=== PATIENT | female | born 1965 | race Caucasian/White ===

== ENCOUNTER → 2017-02-19 | Outpatient (CLI) | payer MEDICARE ==
--- NOTE | 2017-02-20 09:58 | MM ---
Reason for exam: screening (asymptomatic). Last mammogram was performed 1 year and 2 months ago. History: Patient is postmenopausal. Family history of breast cancer in 2 aunts at age 50. Physical Findings: A clinical breast exam by your physician is recommended on an annual basis and results should be correlated with mammographic findings. MG 3D Screening Mammo W/Cad Bilateral CC and MLO view(s) were taken. Prior study comparison: December 12, 2015, bilateral MG 3d screening mammo w/cad. May 31, 2014, bilateral MG screening mammo w CAD. There are scattered fibroglandular densities. There is no discrete abnormality. ASSESSMENT: Negative, BI-RAD 1 RECOMMENDATION: Routine screening mammogram of both breasts in 1 year.
== END | disposition home or self-care (01) ==
LOC: RADMAMWWP 14:31
PROVIDERS: ATTEND Family Medicine
DX: Z12.31 Encounter for screening mammogram for malignant neoplasm of breast (principal)
CPT/HCPCS: 77063; G0202

== ENCOUNTER → 2017-09-21 | Outpatient (CLI) | payer MEDICARE ==
[2017-09-21 11:25] LABS: ALT 40 U/L (9-52); AST 47 U/L (14-36); Cholesterol 240 mg/dL (<200); Creatine Kinase 77 U/L (30-135); HDL Cholesterol 45 mg/dL (40-60); LDL Cholesterol,Calculated 145 mg/dL (0-99); Triglycerides 250 mg/dL (<150)
== END | disposition home or self-care (01) ==
LOC: LABWHC1 10:59
PROVIDERS: ATTEND Internal Medicine Cardiovascular Disease
DX: E78.2 Mixed hyperlipidemia (principal)
CPT/HCPCS: 36415; 80061; 82550; 84450; 84460

== ENCOUNTER → 2018-05-22 | Outpatient (CLI) | payer MEDICARE ==
--- NOTE | 2018-05-22 11:55 | XR ---
EXAMINATION TYPE: XR Hip Complete LT DATE OF EXAM: 05/22/2018 COMPARISON: NONE HISTORY: Pain TECHNIQUE: 2 views submitted FINDINGS: There is no evidence of erosive change or acute fracture. IMPRESSION: 1. No evidence of acute fracture or dislocation.
--- NOTE | 2018-05-22 11:58 | XR ---
EXAMINATION TYPE: XR knee complete RT DATE OF EXAM: 05/22/2018 COMPARISON: NONE HISTORY: Pain TECHNIQUE: Four views are submitted. FINDINGS: Severe arthropathy of the medial compartment knee joint with hypertrophic spurring and complete loss of joint space. There is moderate changes involving the patellofemoral joint. There is a suprapatella r bursal fluid collection. There is a thin linear lucency involving the tibial plateau. IMPRESSION: 1. Severe osteoarthritis. Could not exclude a nondisplaced hairline fracture through the medial tibia l plateau recommend CT scan. A Terrell level critical message alert has been initiated for Lionel Toledo MD via the [employer] Critical Results System on 05/22/2018 11:56 AM. This message alert has been sent to Lionel Toledo MD via the preferences provided by the clinician for the receipt of Radiology Critical Findings. [facility] ID [id number].
--- NOTE | 2018-05-22 12:00 | XR ---
EXAM TYPE: LUMBAR SPINE X RAY SERIES COMPARISON: NONE HISTORY: Pain TECHNIQUE: 4 views are submitted. FINDINGS: Alignment is anatomic. The pedicles are intact. The transverse processes are intact. There is a gra de 1 anterolisthesis L4 on L5. There is multilevel mild degenerative disc disease. There is advanced facet arthropathy at levels L3-S1. Foraminal encroachment L5-S1 suspected. Hypertrophic spurring at m ultiple levels and there is mild diffuse osteopenia.. Surgical clips in the right upper quadrant. IMPRESSION: 1. Multilevel degenerative disc disease with advanced facet arthropathy and grade 1 anterolisthesis L 4 on L5. Recommend follow-up MRI. 2. Foraminal encroachment L5-S1 suspected.
--- NOTE | 2018-05-22 12:05 | XR ---
EXAMINATION TYPE: XR cervical spine comp DATE OF EXAM: 05/22/2018 COMPARISON: 05/26/2016 HISTORY: Pain TECHNIQUE: Four views are submitted. FINDINGS: The odontoid is intact. There are no compression deformities. The prevertebral soft tissue structur es are within normal limits. Grade 1 anterolisthesis C4 on C5. Multilevel mild facet arthropathy. Fo raminal encroachment C3-4 and C5-6 suggested soft tissue calcification on the right neck likely relat ed to carotid artery. Loss of the normal cervical lordosis. IMPRESSION: 1. Facet arthropathy with a minimal anterolisthesis of C4 on C5 with loss of the cervical lordosis. T his is nonspecific. Foraminal encroachment suspected. Recommend follow-up MRI.
== END | disposition home or self-care (01) ==
LOC: RADXRMAIN 11:12
PROVIDERS: ATTEND Physical Medicine & Rehabilitation
DX: M43.12 Spondylolisthesis, cervical region (principal); M43.16 Spondylolisthesis, lumbar region; M51.36 Other intervertebral disc degeneration, lumbar region; M46.96 Unspecified inflammatory spondylopathy, lumbar region; M46.92 Unspecified inflammatory spondylopathy, cervical region; M17.11 Unilateral primary osteoarthritis, right knee; M25.552 Pain in left hip
CPT/HCPCS: 72050; 72110; 73502

== ENCOUNTER → 2018-05-23 | Outpatient (CLI) | payer MEDICARE ==
--- NOTE | 2018-05-23 18:55 | CT ---
EXAMINATION TYPE: CT knee RT wo/w con DATE OF EXAM: 05/23/2018 COMPARISON: None HISTORY: unspecified proximal tibial fracture CT DLP: 969.80 mGycm Automated exposure control for dose reduction was used. CONTRAST: Performed with IV Contrast, patient injected with 100 mL of Isovue 300. FINDINGS: Multiple axial sections were obtained from the mid shaft of the femur to the mid shaft of the tibia w ith no contrast. There is severe narrowing of the medial joint space of the right knee with spurring of the medial fem oral and tibial condyles. The knee joint space is obliterated. There is mild narrowing of the lateral joint space. I see no fracture. Patellofemoral joint is intact. There is hypertrophic spurring on th e patella. There is no sign of a joint effusion. There is subchondral cystic change and sclerosis on both sides of the medial joint space. IMPRESSION: MODERATELY SEVERE OSTEOARTHRITIS IN THE MEDIAL JOINT SPACE OF THE RIGHT KNEE. NO FRACTURE SEEN.
--- NOTE | 2018-05-23 18:58 | CT ---
EXAMINATION TYPE: CT hip LT wo con DATE OF EXAM: 05/23/2018 COMPARISON: None HISTORY: pain CT DLP: 874.90 mGycm Automated exposure control for dose reduction was used. FINDINGS: Multiple axial sections were obtained from the mid ileum to the midshaft of the left femur with no co ntrast. I see no fracture nor dislocation. Hip joint space is fairly normal. There is no sign of hip dysplasi a. Acetabulum is intact. Proximal femur is intact. There is no free fluid in the pelvis. There is no evidence of soft tissue mass. Left sacroiliac joint is intact. IMPRESSION: NEGATIVE CT SCAN OF THE LEFT HIP JOINT.
== END ==
LOC: RADCTMAIN 16:23
PROVIDERS: ATTEND Family Medicine
DX: M17.11 Unilateral primary osteoarthritis, right knee (principal)
CPT/HCPCS: 73702; 73700; Q9967

== ENCOUNTER 2018-10-16 16:58 | Observation (INO) | payer MEDICARE ==
[2018-10-16] MEDS ORDERED: ASPIRIN 81 MG PO STA (19:08)
[2018-10-16] MEDS ORDERED: SODIUM CHLORIDE 0.9% 1,000 ML IV STA (19:08)
[2018-10-16 19:24] LABS: Appearance,Urine Clear (Clear); Bilirubin,Urine Negative (Negative); Blood,Urine Negative (Negative); Color,Urine Yellow; Glucose,Urine (UA) Negative (Negative); Ketones,Urine Negative (Negative); Leukocyte Esterase,Urine Negative (Negative); Nitrite,Urine Negative (Negative); PH, Urine 6.5 (5.0-8.0); Protein,Urine Negative (Negative); Specific Gravity,Urine 1.022 (1.001-1.035); Urobilinogen,Urine <2.0 mg/dL (<2.0)
[2018-10-16 19:32] LABS: Basophils % (A) 1 %; Eosinophils # (A) 0.2 k/uL (0-0.7); Eosinophils % (A) 3 %; HCT 33.6 % (34.0-46.0); HGB 11.1 gm/dL (11.4-16.0); Lymphocytes # (A) 2.9 k/uL (1.0-4.8); Lymphocytes % (A) 35 %; MCH 27.8 pg (25.0-35.0); MCV 84.1 fL (80.0-100.0); Mean Platelet Volume 7.1; Monocytes # (A) 0.4 k/uL (0-1.0); Monocytes % (A) 5 %; Neutrophils # (A) 4.6 k/uL (1.3-7.7); Neutrophils % (A) 55 %; Platelet Count 307 k/uL (150-450); WBC 8.3 k/uL (3.8-10.6)
[2018-10-16 19:34] LABS: Albumin 4.4 g/dL (3.5-5.0); Calcium 9.9 mg/dL (8.4-10.2); Magnesium 1.9 mg/dL (1.6-2.3); Potassium 3.5 mmol/L (3.5-5.1); Total Bilirubin 0.4 mg/dL (0.2-1.3); Total Protein 7.8 g/dL (6.3-8.2)
[2018-10-16 19:58] LABS: Partial Thromboplastin Time 24.1 sec (22.0-30.0); Prothrombin Time 10.4 sec (9.0-12.0)
--- NOTE | 2018-10-16 20:31 | XR ---
EXAMINATION TYPE: XR chest 2V DATE OF EXAM: 10/16/2018 COMPARISON: NONE HISTORY: Chest pain TECHNIQUE: Frontal and lateral views of the chest are obtained. FINDINGS: Heart and mediastinum are normal. Lungs are clear. Diaphragm is normal. Bony thorax appear s normal. There are chest leads. IMPRESSION: Normal chest.
[2018-10-16 20:43] LABS: D-Dimer 0.65 mg/L FEU (<0.60)
--- NOTE | 2018-10-16 21:03 | US ---
EXAMINATION TYPE: US venous doppler duplex LE RT DATE OF EXAM: 10/16/2018 8:36 PM COMPARISON: NONE CLINICAL HISTORY: Pain. Edema SIDE PERFORMED: Right TECHNIQUE: The lower extremity deep venous system is examined utilizing real time linear array sonog poly with graded compression, doppler sonography and color-flow sonography. VESSELS IMAGED: External Iliac Vein (EIV) Common Femoral Vein Deep Femoral Vein Greater Saphenous Vein * Femoral Vein Popliteal Vein Small Saphenous Vein * Proximal Calf Veins (* superficial vessels) Right Leg: Negative for DVT No evidence of DVT right leg. IMPRESSION: Negative exam. No evidence of deep venous thrombosis in the right leg.
--- NOTE | 2018-10-16 22:12 | CT ---
EXAMINATION TYPE: CT chest angio for PE DATE OF EXAM: 10/16/2018 COMPARISON: 5 views HISTORY: Chest pain. CT DLP: 741.1 mGycm Automated exposure control for dose reduction was used. CONTRAST: CT Chest for pulmonary embolism performed with with IV Contrast, patient injected with 79ml mL of Iso laura 370. There are 3-D post processed images. FINDINGS: The lungs are clear of consolidation. There is no pleural effusion. There is no evidence of a pulmona ry mass. Heart size is normal. There is no pericardial effusion. There is no mediastinal adenopathy. Thoracic aorta is intact without evidence of aneurysm or dissection. There is normal contrast opacification of the pulmonary arteries. There are no filling defects. There is spurring in the thoracic spine. I see no bony destructive process. IMPRESSION: No evidence of pulmonary embolism. Negative exam.
[2018-10-16] MEDS ORDERED: NITROGLYCERIN SL TABS 0.4 MG TAB SUBLINGUAL PRN (22:43)
--- NOTE | 2018-10-16 22:43 | ED ---
General Adult HPI - General Source: patient, RN notes reviewed, old records reviewed Mode of arrival: wheelchair Limitations: no limitations <Zan Jack - Last Filed: 10/16/18 22:45> <Uzair Campbell - Last Filed: 10/19/18 08:08> - General Chief complaint: Recheck/Abnormal Lab/Rx Stated complaint: sent by [facility]-possible DVT Time Seen by Provider: 10/16/18 18:52 - History of Present Illness Initial comments: 53-year-old female patient past medical history of hypertension presents ED for multiple complaints. Patient reports that she has myalgias throughout her body. Complains of pain in her right lower extremity. Patient also complains approximately 3 months of waxing and waning chest pain in her left axilla. Patient was sent for approximately 2 days she has been having sharp stabbing ch est pains in her left breast region that lasts approximately 30 seconds or less. Patient states that he does have mild shortness of breath and has had this for approximately one month. She denies any abdominal pain, nausea vomiting or diarrhea. Patient states that she is not . Systemic: Pt denies fatigue, myalgia, fever/chills. Pt denies weakness, night sweats, weight loss. Neuro: Pt denies headache, visual disturbances, syncope or pre-syncope. HEENT: Pt denies ocular discharge or irritation, otalgia, rhinorrhea, pharyngitis or notable lymphadenopathy. Cardiopulmonary: Pt denies chest pain, SOB, heart palpitations, dyspnea on exertion. Abdominal/GI: Pt denies abdominal pain, n/v/d. : Pt denies dysuria, burning w/ urination, frequency/urgency. Denies new onset urinary or bowel incontinence. MSK: Pt denies myalgia, loss of strength or function in extremities. Neuro: Pt denies new onset weakness, paresthesias. (Zan Jack) - Related Data Home Medications Medication Instructions Recorded Confirmed Gabapentin [Neurontin] 400 mg PO TID 11/02/13 10/16/18 HYDROcodone/APAP 10-325MG [[place] 1 tab PO QID PRN 11/02/13 10/16/18 10-325] Ibuprofen [Motrin] 800 mg PO TID 11/02/13 10/16/18 Nitroglycerin Sl Tabs [Nitrostat] 0.4 mg PO DIRECTED PRN 11/02/13 10/16/18 Omeprazole [PriLOSEC] 20 mg PO AC-BID 11/02/13 10/16/18 Zolpidem [Ambien] 10 mg PO HS 11/02/13 10/16/18 tiZANidine [Zanaflex] 4 mg PO Q8HR 11/02/13 10/16/18 Ondansetron Odt [Zofran ODT] 4 mg PO Q8HR PRN 05/26/16 10/16/18 Cider Vinegar [Apple Cider Vinegar] 300 mg PO BID 10/16/18 10/16/18 Ranitidine HCl [Zantac] 150 mg PO HS 10/16/18 10/16/18 Previous Rx's Medication Instructions Recorded Furosemide [Lasix] 40 mg PO DAILY #90 tab 10/17/18 Rosuvastatin Calcium [Crestor] 10 mg PO DAILY #90 tab 10/17/18 cloNIDine HCL [Catapres] 0.1 mg PO BID #0 10/17/18 Allergies Allergy/AdvReac Type Severity Reaction Status Date / Time adhesive Allergy Unknown Verified 05/26/16 20:20 latex Allergy Rash/Hives Verified 10/16/18 19:14 Review of Systems ROS Other: All systems not noted in ROS Statement are negative. <Zan Jack - Last Filed: 10/16/18 22:45> ROS Other: All systems not noted in ROS Statement are negative. <Uzair Campbell - Last Filed: 10/19/18 08:08> ROS Statement: Those systems with pertinent positive or pertinent negative responses have been documented in the HPI. Past Medical History Past Medical History: Eye Disorder, Hypertension Additional Past Medical History / Comment(s): DIFFICULTY SWALLOWING, STATES NEEDS LASER EYE SX FOR "NARROWING OF EYE" BEING WORKED UP BY CARDIOLOGY FOR "RACING HEART" HAD STRESS TEST AND ECHO 24HR MONITOR HX OF 65 LB WEIGHT LOSS, HX OF KIDNEY STONES, HX OF "BROKEN NECK" History of Any Multi-Drug Resistant Organisms: None Reported Past Surgical History: Orthopedic Surgery Additional Past Surgical History / Comment(s): LEFT SHOULDER SX 10/2013, BENIGN MASS REMOVED X3 LEFT ARM,RT KNEE ARTHROSCOPY, MULT. PAIN CLINIC PROCEDURES Past Anesthesia/Blood Transfusion Reactions: Postoperative Nausea & Vomiting (PONV) Additional Past Anesthesia/Blood Transfusion Reaction / Comment(s): STATES HARD TIME WAKING UP Past Psychological History: No Psychological Hx Reported Smoking Status: Never smoker Past Alcohol Use History: None Reported Past Drug Use History: None Reported <Zan Jack - Last Filed: 10/16/18 22:45> General Exam Limitations: no limitations <Zan Jack - Last Filed: 10/16/18 22:45> - General Exam Comments Initial Comments: Constitutional: NAD, AOX3, Pt has pleasant affect. HEENT: NC/AT, trachea midline, neck supple, no lymphadenopathy. Posterior pharynx non erythematous, without exudates. External ears appear normal, without discharge. Mucous membranes moist. Eyes PERRLA, EOM intact. There is no scleral icterus. No pallor noted. Cardiopulmonary: RRR, no murmurs, rubs or gallops, no JVD noted. Lungs CTAB in anterior and posterior [place]. No peripheral edema. Abdominal exam: Abdomen soft and non-distended. Abdomen non-tender to palpation in all 4 quadrants. Bowel sounds active in LLQ. No hepatosplenomegaly. No ecchymosis Neuro: CN II-XII grossly intact. No nuchal rigidity. MSK: Mild tenderness to palpation in right lower extremity posterior calf. No tenderness to palpation left lower extremity. Homans sign negative.. No erythema, no ecchymosis. Sensation intact in upper and lower extremities. Full active ROM in upper and lower extremities, 5/5 stregnth. (Zan Jack) Course Vital Signs 10/16/18 10/16/18 10/16/18 17:26 19:30 22:53 Temperature 98.5 F 97.1 F L Pulse Rate 69 60 63 Pulse Rate [ Pulse Oximetery ] Respiratory 18 18 16 Rate Blood Pressure 125/67 133/69 151/80 Blood Pressure [Right Arm] O2 Sat by Pulse 96 98 100 Oximetry 10/16/18 10/17/18 23:23 00:00 Temperature 97.7 F Pulse Rate Pulse Rate [ 57 L Pulse Oximetery ] Respiratory 17 18 Rate Blood Pressure Blood Pressure 148/77 [Right Arm] O2 Sat by Pulse 98 Oximetry Medical Decision Making - Lab Data Result diagrams: 10/16/18 19:15 10/16/18 19:15 <Zan Jack - Last Filed: 10/16/18 22:45> - Lab Data Result diagrams: 10/16/18 19:15 10/16/18 19:15 <Uzair Campbell - Last Filed: 10/19/18 08:08> - Medical Decision Making 53-year-old female patient past medical history of hypertension presents ED for multiple complaints. Patient reports that she has myalgias throughout her body. Complains of pain in her right lower extremity. Patient also complains approximately 3 months of waxing and waning chest pain in her left axilla. Patient was sent for approximately 2 days she has been having sharp stabbing chest pains in her left breast region that lasts approximately 30 seconds or less. Patient states that he does have mild shortness of breath and has had this for approximately one month. She denies any abdominal pain, nausea vomiting or diarrhea. Patient states that she is not . Patient vital signs stable, afebrile. Physical exam displayed: Mild tenderness to palpation in right lower extremity posterior calf. No tenderness to palpation left lower extremity. Homans sign negative. Laboratory investigations were not impressive CBC. Title Searcher is studies revealed mildly elevated d-dimer of 0.65. CMP non-impressive. Troponin negative. BNP within normal limits. UA negative. Ul trasound lower extremity displayed no acute DVT. Chest x-ray displayed no acute process. CT displayed no evidence of pulmonary embolism. Patient admitted for cardiology consult and serial troponins. Case discussed with Dr. Yadav. (Zan Jack) I saw this patient in conjunction with the physician seismic survey assistant. I performed independent history and physical exam. Agree with case management. (Uzair Campbell) - Lab Data Lab Results 10/16/18 10/16/18 10/16/18 Range/Units 19:15 19:15 19:15 WBC 8.3 (3.8-10.6) k/uL RBC 4.00 (3.80-5.40) m/uL Hgb 11.1 L (11.4-16.0) gm/dL Hct 33.6 L (34.0-46.0) % MCV 84.1 (80.0-100.0) fL MCH 27.8 (25.0-35.0) pg MCHC 33.0 (31.0-37.0) g/dL RDW 15.0 (11.5-15.5) % Plt Count 307 (150-450) k/uL Neutrophils % 55 % Lymphocytes % 35 % Monocytes % 5 % Eosinophils % 3 % Basophils % 1 % Neutrophils # 4.6 (1.3-7.7) k/uL Lymphocytes # 2.9 (1.0-4.8) k/uL Monocytes # 0.4 (0-1.0) k/uL Eosinophils # 0.2 (0-0.7) k/uL Basophils # 0.0 (0-0.2) k/uL PT 10.4 (9.0-12.0) sec INR 1.0 (<1.2) APTT 24.1 (22.0-30.0) sec D-Dimer 0.65 H (<0.60) mg/L FEU Sodium 141 (137-145) mmol/L Potassium 3.5 (3.5-5.1) mmol/L Chloride 106 (98-107) mmol/L Carbon Dioxide 27 (22-30) mmol/L Anion Gap 8 mmol/L BUN 17 (7-17) mg/dL Creatinine 0.93 (0.52-1.04) mg/dL Est GFR (CKD-EPI)AfAm 81 (>60 ml/min/1.73 sqM) Est GFR (CKD-EPI)NonAf 70 (>60 ml/min/1.73 sqM) Glucose 95 (74-99) mg/dL Calcium 9.9 (8.4-10.2) mg/dL Magnesium 1.9 (1.6-2.3) mg/dL Total Bilirubin 0.4 (0.2-1.3) mg/dL AST 37 H (14-36) U/L ALT 36 (9-52) U/L Alkaline Phosphatase 97 (38-126) U/L Troponin I (0.000-0.034) ng/mL NT-Pro-B Natriuret Pep pg/mL Total Protein 7.8 (6.3-8.2) g/dL Albumin 4.4 (3.5-5.0) g/dL Triglycerides (<150) mg/dL Cholesterol (<200) mg/dL LDL Cholesterol, Calc (0-99) mg/dL HDL Cholesterol (40-60) mg/dL Urine Color Urine Appearance (Clear) Urine pH (5.0-8.0) Ur Specific [place] (1.001-1.035) Urine Protein (Negative) Urine Glucose (UA) (Negative) Urine Ketones (Negative) Urine Blood (Negative) Urine Nitrite (Negative) Urine Bilirubin (Negative) Urine Urobilinogen (<2.0) mg/dL Ur Leukocyte Esterase (Negative) Urine HCG, Qual (Not Detectd) 10/16/18 10/16/18 10/16/18 Range/Units 19:15 19:15 19:15 WBC (3.8-10.6) k/uL RBC (3.80-5.40) m/uL Hgb (11.4-16.0) gm/dL Hct (34.0-46.0) % MCV (80.0-100.0) fL MCH (25.0-35.0) pg MCHC (31.0-37.0) g/dL RDW (11.5-15.5) % Plt Count (150-450) k/uL Neutrophils % % Lymphocytes % % Monocytes % % Eosinophils % % Basophils % % Neutrophils # (1.3-7.7) k/uL Lymphocytes # (1.0-4.8) k/uL Monocytes # (0-1.0) k/uL Eosinophils # (0-0.7) k/uL Basophils # (0-0.2) k/uL PT (9.0-12.0) sec INR (<1.2) APTT (22.0-30.0) sec D-Dimer (<0.60) mg/L FEU Sodium (137-145) mmol/L Potassium (3.5-5.1) mmol/L Chloride (98-107) mmol/L Carbon Dioxide (22-30) mmol/L Anion Gap mmol/L BUN (7-17) mg/dL Creatinine (0.52-1.04) mg/dL Est GFR (CKD-EPI)AfAm (>60 ml/min/1.73 sqM) Est GFR (CKD-EPI)NonAf (>60 ml/min/1.73 sqM) Glucose (74-99) mg/dL Calcium (8.4-10.2) mg/dL Magnesium (1.6-2.3) mg/dL Total Bilirubin (0.2-1.3) mg/dL AST (14-36) U/L ALT (9-52) U/L Alkaline Phosphatase (38-126) U/L Troponin I <0.012 (0.000-0.034) ng/mL NT-Pro-B Natriuret Pep 93 pg/mL Total Protein (6.3-8.2) g/dL Albumin (3.5-5.0) g/dL Triglycerides (<150) mg/dL Cholesterol (<200) mg/dL LDL Cholesterol, Calc (0-99) mg/dL HDL Cholesterol (40-60) mg/dL Urine Color Urine Appearance (Clear) Urine pH (5.0-8.0) Ur Specific [place] (1.001-1.035) Urine Protein (Negative) Urine Glucose (UA) (Negative) Urine Ketones (Negative) Urine Blood (Negative) Urine Nitrite (Negative) Urine Bilirubin (Negative) Urine Urobilinogen (<2.0) mg/dL Ur Leukocyte Esterase (Negative) Urine HCG, Qual Not Detected (Not Detectd) 10/16/18 10/16/18 Range/Units 19:15 19:15 WBC (3.8-10.6) k/uL RBC (3.80-5.40) m/uL Hgb (11.4-16.0) gm/dL Hct (34.0-46.0) % MCV (80.0-100.0) fL MCH (25.0-35.0) pg MCHC (31.0-37.0) g/dL RDW (11.5-15.5) % Plt Count (150-450) k/uL Neutrophils % % Lymphocytes % % Monocytes % % Eosinophils % % Basophils % % Neutrophils # (1.3-7.7) k/uL Lymphocytes # (1.0-4.8) k/uL Monocytes # (0-1.0) k/uL Eosinophils # (0-0.7) k/uL Basophils # (0-0.2) k/uL PT (9.0-12.0) sec INR (<1.2) APTT (22.0-30.0) sec D-Dimer (<0.60) mg/L FEU Sodium (137-145) mmol/L Potassium (3.5-5.1) mmol/L Chloride (98-107) mmol/L Carbon Dioxide (22-30) mmol/L Anion Gap mmol/L BUN (7-17) mg/dL Creatinine (0.52-1.04) mg/dL Est GFR (CKD-EPI)AfAm (>60 ml/min/1.73 sqM) Est GFR (CKD-EPI)NonAf (>60 ml/min/1.73 sqM) Glucose (74-99) mg/dL Calcium (8.4-10.2) mg/dL Magnesium (1.6-2.3) mg/dL Total Bilirubin (0.2-1.3) mg/dL AST (14-36) U/L ALT (9-52) U/L Alkaline Phosphatase (38-126) U/L Troponin I (0.000-0.034) ng/mL NT-Pro-B Natriuret Pep pg/mL Total Protein (6.3-8.2) g/dL Albumin (3.5-5.0) g/dL Triglycerides 386 H (<150) mg/dL Cholesterol 214 H (<200) mg/dL LDL Cholesterol, Calc 107 H (0-99) mg/dL HDL Cholesterol 30 L (40-60) mg/dL Urine Color Yellow Urine Appearance Clear (Clear) Urine pH 6.5 (5.0-8.0) Ur Specific [place] 1.022 (1.001-1.035) Urine Protein Negative (Negative) Urine Glucose (UA) Negative (Negative) Urine Ketones Negative (Negative) Urine Blood Negative (Negative) Urine Nitrite Negative (Negative) Urine Bilirubin Negative (Negative) Urine Urobilinogen <2.0 (<2.0) mg/dL Ur Leukocyte Esterase Negative (Negative) Urine HCG, Qual (Not Detectd) Disposition Is patient prescribed a controlled substance at d/c from ED?: No <Zan Jack - Last Filed: 10/16/18 22:45> <Uzair Campbell - Last Filed: 10/19/18 08:08> Clinical Impression: Chest pain Disposition: ADMITTED IP TO THIS HOSP Condition: Serious
--- NOTE | 2018-10-16 22:59 | ED ---
Medical Decision Making - Lab Data Result diagrams: 10/16/18 19:15 10/16/18 19:15 - EKG Data -: EKG Interpreted by Me (and dr rutledge) <Zan Jack - Last Filed: 10/16/18 22:58> - Lab Data Result diagrams: 10/16/18 19:15 10/16/18 19:15 <Uzair Campbell - Last Filed: 10/19/18 08:07> - Lab Data Lab Results 10/16/18 10/16/18 10/16/18 Range/Units 19:15 19:15 19:15 WBC 8.3 (3.8-10.6) k/uL RBC 4.00 (3.80-5.40) m/uL Hgb 11.1 L (11.4-16.0) gm/dL Hct 33.6 L (34.0-46.0) % MCV 84.1 (80.0-100.0) fL MCH 27.8 (25.0-35.0) pg MCHC 33.0 (31.0-37.0) g/dL RDW 15.0 (11.5-15.5) % Plt Count 307 (150-450) k/uL Neutrophils % 55 % Lymphocytes % 35 % Monocytes % 5 % Eosinophils % 3 % Basophils % 1 % Neutrophils # 4.6 (1.3-7.7) k/uL Lymphocytes # 2.9 (1.0-4.8) k/uL Monocytes # 0.4 (0-1.0) k/uL Eosinophils # 0.2 (0-0.7) k/uL Basophils # 0.0 (0-0.2) k/uL PT 10.4 (9.0-12.0) sec INR 1.0 (<1.2) APTT 24.1 (22.0-30.0) sec D-Dimer 0.65 H (<0.60) mg/L FEU Sodium 141 (137-145) mmol/L Potassium 3.5 (3.5-5.1) mmol/L Chloride 106 (98-107) mmol/L Carbon Dioxide 27 (22-30) mmol/L Anion Gap 8 mmol/L BUN 17 (7-17) mg/dL Creatinine 0.93 (0.52-1.04) mg/dL Est GFR (CKD-EPI)AfAm 81 (>60 ml/min/1.73 sqM) Est GFR (CKD-EPI)NonAf 70 (>60 ml/min/1.73 sqM) Glucose 95 (74-99) mg/dL Calcium 9.9 (8.4-10.2) mg/dL Magnesium 1.9 (1.6-2.3) mg/dL Total Bilirubin 0.4 (0.2-1.3) mg/dL AST 37 H (14-36) U/L ALT 36 (9-52) U/L Alkaline Phosphatase 97 (38-126) U/L Troponin I (0.000-0.034) ng/mL NT-Pro-B Natriuret Pep pg/mL Total Protein 7.8 (6.3-8.2) g/dL Albumin 4.4 (3.5-5.0) g/dL Triglycerides (<150) mg/dL Cholesterol (<200) mg/dL LDL Cholesterol, Calc (0-99) mg/dL HDL Cholesterol (40-60) mg/dL Urine Color Urine Appearance (Clear) Urine pH (5.0-8.0) Ur Specific [place] (1.001-1.035) Urine Protein (Negative) Urine Glucose (UA) (Negative) Urine Ketones (Negative) Urine Blood (Negative) Urine Nitrite (Negative) Urine Bilirubin (Negative) Urine Urobilinogen (<2.0) mg/dL Ur Leukocyte Esterase (Negative) Urine HCG, Qual (Not Detectd) 10/16/18 10/16/18 10/16/18 Range/Units 19:15 19:15 19:15 WBC (3.8-10.6) k/uL RBC (3.80-5.40) m/uL Hgb (11.4-16.0) gm/dL Hct (34.0-46.0) % MCV (80.0-100.0) fL MCH (25.0-35.0) pg MCHC (31.0-37.0) g/dL RDW (11.5-15.5) % Plt Count (150-450) k/uL Neutrophils % % Lymphocytes % % Monocytes % % Eosinophils % % Basophils % % Neutrophils # (1.3-7.7) k/uL Lymphocytes # (1.0-4.8) k/uL Monocytes # (0-1.0) k/uL Eosinophils # (0-0.7) k/uL Basophils # (0-0.2) k/uL PT (9.0-12.0) sec INR (<1.2) APTT (22.0-30.0) sec D-Dimer (<0.60) mg/L FEU Sodium (137-145) mmol/L Potassium (3.5-5.1) mmol/L Chloride (98-107) mmol/L Carbon Dioxide (22-30) mmol/L Anion Gap mmol/L BUN (7-17) mg/dL Creatinine (0.52-1.04) mg/dL Est GFR (CKD-EPI)AfAm (>60 ml/min/1.73 sqM) Est GFR (CKD-EPI)NonAf (>60 ml/min/1.73 sqM) Glucose (74-99) mg/dL Calcium (8.4-10.2) mg/dL Magnesium (1.6-2.3) mg/dL Total Bilirubin (0.2-1.3) mg/dL AST (14-36) U/L ALT (9-52) U/L Alkaline Phosphatase (38-126) U/L Troponin I <0.012 (0.000-0.034) ng/mL NT-Pro-B Natriuret Pep 93 pg/mL Total Protein (6.3-8.2) g/dL Albumin (3.5-5.0) g/dL Triglycerides (<150) mg/dL Cholesterol (<200) mg/dL LDL Cholesterol, Calc (0-99) mg/dL HDL Cholesterol (40-60) mg/dL Urine Color Urine Appearance (Clear) Urine pH (5.0-8.0) Ur Specific [place] (1.001-1.035) Urine Protein (Negative) Urine Glucose (UA) (Negative) Urine Ketones (Negative) Urine Blood (Negative) Urine Nitrite (Negative) Urine Bilirubin (Negative) Urine Urobilinogen (<2.0) mg/dL Ur Leukocyte Esterase (Negative) Urine HCG, Qual Not Detected (Not Detectd) 10/16/18 10/16/18 Range/Units 19:15 19:15 WBC (3.8-10.6) k/uL RBC (3.80-5.40) m/uL Hgb (11.4-16.0) gm/dL Hct (34.0-46.0) % MCV (80.0-100.0) fL MCH (25.0-35.0) pg MCHC (31.0-37.0) g/dL RDW (11.5-15.5) % Plt Count (150-450) k/uL Neutrophils % % Lymphocytes % % Monocytes % % Eosinophils % % Basophils % % Neutrophils # (1.3-7.7) k/uL Lymphocytes # (1.0-4.8) k/uL Monocytes # (0-1.0) k/uL Eosinophils # (0-0.7) k/uL Basophils # (0-0.2) k/uL PT (9.0-12.0) sec INR (<1.2) APTT (22.0-30.0) sec D-Dimer (<0.60) mg/L FEU Sodium (137-145) mmol/L Potassium (3.5-5.1) mmol/L Chloride (98-107) mmol/L Carbon Dioxide (22-30) mmol/L Anion Gap mmol/L BUN (7-17) mg/dL Creatinine (0.52-1.04) mg/dL Est GFR (CKD-EPI)AfAm (>60 ml/min/1.73 sqM) Est GFR (CKD-EPI)NonAf (>60 ml/min/1.73 sqM) Glucose (74-99) mg/dL Calcium (8.4-10.2) mg/dL Magnesium (1.6-2.3) mg/dL Total Bilirubin (0.2-1.3) mg/dL AST (14-36) U/L ALT (9-52) U/L Alkaline Phosphatase (38-126) U/L Troponin I (0.000-0.034) ng/mL NT-Pro-B Natriuret Pep pg/mL Total Protein (6.3-8.2) g/dL Albumin (3.5-5.0) g/dL Triglycerides 386 H (<150) mg/dL Cholesterol 214 H (<200) mg/dL LDL Cholesterol, Calc 107 H (0-99) mg/dL HDL Cholesterol 30 L (40-60) mg/dL Urine Color Yellow Urine Appearance Clear (Clear) Urine pH 6.5 (5.0-8.0) Ur Specific [place] 1.022 (1.001-1.035) Urine Protein Negative (Negative) Urine Glucose (UA) Negative (Negative) Urine Ketones Negative (Negative) Urine Blood Negative (Negative) Urine Nitrite Negative (Negative) Urine Bilirubin Negative (Negative) Urine Urobilinogen <2.0 (<2.0) mg/dL Ur Leukocyte Esterase Negative (Negative) Urine HCG, Qual (Not Detectd) - EKG Data EKG Comments: Ventricular rate 66, TX interval 144, QRS 84, QT/QTc 42/4.1. Normal sinus rhythm with sinus arrhythmia. No concern for acute ischemia. (Zan Jack) Disposition Is patient prescribed a controlled substance at d/c from ED?: No <Zan Jack - Last Filed: 10/16/18 22:58> <Uzair Campbell - Last Filed: 10/19/18 08:07> Clinical Impression: Chest pain Disposition: ADMITTED IP TO THIS HOSP Condition: Serious
[2018-10-17 04:00] LABS: Cholesterol 214 mg/dL (<200); HDL Cholesterol 30 mg/dL (40-60); LDL Cholesterol,Calculated 107 mg/dL (0-99); Triglycerides 386 mg/dL (<150)
[2018-10-17 05:18] VITALS: RESP 18
[2018-10-17] MEDS ORDERED: ASPIRIN 325 MG TAB PO SCH (09:00)
[2018-10-17] MEDS ORDERED: HYDROcodone/APAP 10-325MG 1 EACH TAB PO PRN (10:35)
[2018-10-17] MEDS ORDERED: ZOLPIDEM 10 MG TAB PO PRN (10:35)
[2018-10-17] MEDS ORDERED: ONDANSETRON ODT 4 MG TAB PO PRN (10:35)
[2018-10-17] MEDS ORDERED: NITROGLYCERIN SL TABS 0.4 MG TAB SUBLINGUAL PRN (10:35)
[2018-10-17] MEDS ORDERED: PANTOPRAZOLE 40 MG TABLET PO SCH (10:45)
[2018-10-17] MEDS ORDERED: GABAPENTIN 400 MG CAP PO SCH ×2 (10:58→16:00)
[2018-10-17] MEDS ORDERED: FUROSEMIDE 40 MG TAB PO SCH (11:00)
[2018-10-17] MEDS ORDERED: cloNIDine HCL 0.1 MG TAB PO SCH (11:00)
[2018-10-17 11:46] VITALS: BP 128/67; PULSE 71; TEMP 98
--- NOTE | 2018-10-17 12:07 | P.CRDCN ---
History of Present Illness History of present illness: This is a pleasant 53-year-old female past medical history significant for hypertension and dyslipidemia. She follows in the office with Dr. Soliz. We've been asked to see her in consultation secondary to chest pain. She states over the previous few days she has noticed an increase in lower extremity edema associated with mild shortness of breath and a tightness across her chest. She woke up Saturday night with a tight pain in the left precordial region that radiated to the left shoulder. She also feels which she describes as a "flip- flopping" in her chest. She states this all palpitations sensation has been going on since she's been in the hospital. Telemetry tracings are unremarkable. Her chest discomfort has subsided. She is seen and examined laying completely flat in bed in no acute distress. Her chest pain has subsided. She does continue to feel discomfort in the left shoulder that is reproducible when she moves her arm or raises her arm. She has had previous shoulder reconstructive surgery. EKG reveals sinus mechanism with no acute ST or T wave abnormalities noted 2. Chest x-ray is negative for an acute cardiopulmonary process. CTA negative for pulmonary embolism. Her extremity Doppler negative for DVT. Laboratory data reviewed, cardiac enzymes negative 3, LDL 107, HDL 30, triglycerides 386, NT proBNP 93, magnesium 1.9, creatinine 0.93, potassium 3.5, sodium 141, d-dimer 0.65, WBC 8.3, hemoglobin 11.1, platelets 307. Current cardiac medications include hydrochlorothiazide 25 mg daily and clonidine 0.1 mg 3 times a day. Most recent echocardiogram obtained in the office preserved LV systolic function. Most recent stress test performed in the office in 2017 was negative for stress- induced cardiac ischemia. At the time of my exam: CONSTITUTIONAL: Denies fever. Denies chills. EYES: Denies blurred vision. Denies vision changes. Denies eye pain. EARS, NOSE, MOUTH & THROAT: Denies headache. Denies sore throat. Denies ear pain. CARDIOVASCULAR: Denies chest pain. Complains of shortness of breath. Denies orthopnea. Denies PND. Denies palpitations. RESPIRATORY: Denies cough. GASTROINTESTINAL: Denies abdominal pain. Denies diarrhea. Denies constipation. Denies nausea. Denies vomiting. MUSCULOSKELETAL: Denies myalgias. INTEGUMENTARY: Denies pruitis. Denies rash. NEUROLOGIC: Denies numbness. Denies tingling. Denies weakness. PSYCHIATRIC: Denies anxiety. Denies depression. ENDOCRINE: Denies fatigue. Denies weight change. Denies polydipsia. Denies polyurina. GENITOURINARY: Denies burning, hematuria or urgency with micturation. HEMATOLOGIC: Denies history of anemia. Denies bleeding. Blood pressure 128/67 heart rate 71 afebrile maintaining oxygen saturation on room air GENERAL: This is a 53-year-old female in no apparent distress at the time of my examination. HEENT: Head is atraumatic, normocephalic. Pupils are equal, round. Sclerae anicteric. Conjunctivae are clear. Mucous membranes of the mouth are moist. Neck is supple. There is no jugular venous distention. No carotid bruit is heard. LUNGS: Clear to auscultation no wheezes, rales or rhonchi. No chest wall tenderness is noted on palpation or with deep breathing. HEART: Regular rate and rhythm without murmurs, rubs or gallops. S1 and S2 heard. ABDOMEN: Soft, nontender. Bowel sounds are heard. No organomegaly noted. EXTREMITIES: 1+ b/l lower extremity pitting edmea. No calf tenderness noted. VASCULAR: Radial and dorsalis pedis pulses palpated, no evidence of clubbing. NEUROLOGIC: Patient is awake, alert and oriented x3. ASSESSMENT Chest pain and shortness of breath. Not suggestive of angina. An acute coronary event has been ruled out. Hypertension Dyslipidemia Obesity, BMI 36 PLAN An acute coronary event has been ruled out. Obtain 2D echocardiogram and doppler study to assess cardiac structure and function. Perform stress echocardiogram to assess for stress induced ischemia. Discontinue hydrochlorothiazide and initiate on lasix 20 mg daily. Discussed with her trying crestor 10 mg every other day and she is agreeable to try this regimen. Clinically she is not in heart failure with normal systolic and diastolic function noted on echocardiogram and normal chest xray and BNP. Lower extremity edema not suggestive of heart failure. Follow up with Dr. Soliz upon discharge. Thank you kindly for this consultation. Nurse Practitioner note has been reviewed, I agree with a documented findings and plan of care. Patient was seen and examined. Past Medical History Past Medical History: Eye Disorder, Hypertension Additional Past Medical History / Comment(s): DIFFICULTY SWALLOWING, STATES NEEDS LASER EYE SX FOR "NARROWING OF EYE" BEING WORKED UP BY CARDIOLOGY FOR "RACING HEART" HAD STRESS TEST AND ECHO 24HR MONITOR HX OF 65 LB WEIGHT LOSS, HX OF KIDNEY STONES, HX OF "BROKEN NECK" History of Any Multi-Drug Resistant Organisms: None Reported Past Surgical History: Orthopedic Surgery Additional Past Surgical History / Comment(s): LEFT SHOULDER SX 10/2013, BENIGN MASS REMOVED X3 LEFT ARM,RT KNEE ARTHROSCOPY, MULT. PAIN CLINIC PROCEDURES Past Anesthesia/Blood Transfusion Reactions: Postoperative Nausea & Vomiting (PONV) Additional Past Anesthesia/Blood Transfusion Reaction / Comment(s): STATES HARD TIME WAKING UP Past Psychological History: No Psychological Hx Reported Smoking Status: Never smoker Past Alcohol Use History: None Reported Past Drug Use History: None Reported Medications and Allergies Home Medications Medication Instructions Recorded Confirmed Type Gabapentin [Neurontin] 400 mg PO TID 11/02/13 10/16/18 History HYDROcodone/APAP 10-325MG [[place] 1 tab PO QID PRN 11/02/13 10/16/18 History 10-325] Ibuprofen [Motrin] 800 mg PO TID 11/02/13 10/16/18 History Nitroglycerin Sl Tabs [Nitrostat] 0.4 mg PO DIRECTED PRN 11/02/13 10/16/18 History Omeprazole [PriLOSEC] 20 mg PO AC-BID 11/02/13 10/16/18 History Zolpidem [Ambien] 10 mg PO HS 11/02/13 10/16/18 History cloNIDine HCL [Catapres] 0.1 mg PO TID 11/02/13 10/16/18 History tiZANidine [Zanaflex] 4 mg PO Q8HR 11/02/13 10/16/18 History Ondansetron Odt [Zofran Odt] 4 mg PO Q8HR PRN 05/26/16 10/16/18 History Cider Vinegar [Apple Cider Vinegar] 300 mg PO BID 10/16/18 10/16/18 History Ranitidine HCl [Zantac] 150 mg PO HS 10/16/18 10/16/18 History Furosemide [Lasix] 40 mg PO DAILY #90 tab 10/17/18 Rx Hydrochlorothiazide 25 mg PO DAILY 10/17/18 10/17/18 History Rosuvastatin Calcium [Crestor] 10 mg PO DAILY #90 tab 10/17/18 Rx Allergies Allergy/AdvReac Type Severity Reaction Status Date / Time adhesive Allergy Unknown Verified 05/26/16 20:20 latex Allergy Rash/Hives Verified 10/16/18 19:14 Physical Exam Vitals: Vital Signs Temp Pulse Pulse Pulse Resp BP BP 10/17/18 07:45 10/17/18 07:25 97.8 F 58 L 18 109/72 10/17/18 04:17 97.8 F 52 L 18 103/64 10/17/18 03:29 66 17 10/17/18 00:00 97.7 F 57 L 18 148/77 10/16/18 23:23 17 10/16/18 22:53 97.1 F L 63 16 151/80 10/16/18 19:30 60 18 133/69 10/16/18 17:26 98.5 F 69 18 125/67 Pulse Ox 10/17/18 07:45 98 10/17/18 07:25 98 10/17/18 04:17 97 10/17/18 03:29 10/17/18 00:00 98 10/16/18 23:23 10/16/18 22:53 100 10/16/18 19:30 98 10/16/18 17:26 96 Intake and Output 10/16/18 10/17/18 10/17/18 22:59 06:59 14:59 Other: Voiding Method Toilet # Voids 1 Weight 102.058 kg Results 10/16/18 19:15 10/16/18 19:15 Cardiac Enzymes 10/16/18 10/16/18 10/17/18 Range/Units 19:15 19:15 01:01 AST 37 H (14-36) U/L Troponin I <0.012 <0.012 (0.000-0.034) ng/mL Coagulation 10/16/18 Range/Units 19:15 PT 10.4 (9.0-12.0) sec APTT 24.1 (22.0-30.0) sec Lipids 10/16/18 Range/Units 19:15 Triglycerides 386 H (<150) mg/dL Cholesterol 214 H (<200) mg/dL HDL Cholesterol 30 L (40-60) mg/dL CBC 10/16/18 Range/Units 19:15 WBC 8.3 (3.8-10.6) k/uL RBC 4.00 (3.80-5.40) m/uL Hgb 11.1 L (11.4-16.0) gm/dL Hct 33.6 L (34.0-46.0) % Plt Count 307 (150-450) k/uL Comprehensive Metabolic Panel 10/16/18 Range/Units 19:15 Sodium 141 (137-145) mmol/L Potassium 3.5 (3.5-5.1) mmol/L Chloride 106 (98-107) mmol/L Carbon Dioxide 27 (22-30) mmol/L BUN 17 (7-17) mg/dL Creatinine 0.93 (0.52-1.04) mg/dL Glucose 95 (74-99) mg/dL Calcium 9.9 (8.4-10.2) mg/dL AST 37 H (14-36) U/L ALT 36 (9-52) U/L Alkaline Phosphatase 97 (38-126) U/L Total Protein 7.8 (6.3-8.2) g/dL Albumin 4.4 (3.5-5.0) g/dL Current Medications Generic Name Dose Route Start Last Admin Trade Name Freq PRN Reason Stop Dose Admin Aspirin 325 mg 10/17/18 09:00 Aspirin PO DAILY FOX Nitroglycerin 0.4 mg 10/16/18 22:43 Nitrostat SUBLINGUAL Q5M PRN Chest Pain Intake and Output 10/16/18 10/17/18 10/17/18 22:59 06:59 14:59 Other: Voiding Method Toilet # Voids 1 Weight 102.058 kg 10/16/18 19:15 10/16/18 19:15
--- NOTE | 2018-10-17 12:51 | ECHOS ---
STRESS ECHOCARDIOGRAM DATE OF SERVICE: 10/17/2018 INDICATIONS: Chest pain. MEDICATIONS: BASELINE HEART RATE: 82 BASELINE BLOOD PRESSURE: 130/80 MAXIMUM HEART RATE: 140 MAXIMUM BLOOD PRESSURE: 189/75 85% MPHR: 140 100% MPHR: 165 METS: 7.1 MAXIMUM STAGE REACHED: II TOTAL EXERCISE TIME: 6 minutes CLINICAL INFORMATION: This stress echocardiographic study was performed to evaluate the patient's chest pain. The patient was exercised for a total period of 6 minutes. Peak heart rate of 140 was achieved. Maximum blood pressure 189/75 mmHg was noted. Resting EKG shows normal sinus rhythm with normal AL interval and QRS duration and normal ST-T waves. During exercise, about [address]-segment depression was noted without any symptoms of angina. The baseline echocardiographic images revealed normal left ventricular chamber size with normal left ventricular systolic function. In the immediate postexercise period, normal increase in the wall thickness and contractility was noted. However, only parasternal short and long-axis views were captured, but no wall motion abnormality was noted in the immediate postexercise period. FINAL IMPRESSION: This stress echocardiographic study is negative for stress-induced ischemia. EKG portion of the stress test shows ST-T changes which could be secondary to hypertension and patient on diuretic. There was no associated symptoms of angina. No dysrhythmias are noted. MMODL / IJN: [id number] /
--- NOTE | 2018-10-17 14:13 | P.PN ---
Progress Note - Text Stable for discharge from a cardiac perspective. Follow up with Dr. Soliz upon discharge.
--- NOTE | 2018-10-17 15:42 | ECHOF ---
Referral Reason:chest pain MEASUREMENTS -------- HEIGHT: 167.6 cm WEIGHT: 102.1 kg BP: 103/64 RVIDd: 3.2 cm (< 3.3) IVSd: 1.3 cm (0.6 - 1.1) LVIDd: 4.0 cm (3.9 - 5.3) LVPWd: 1.3 cm (0.6 - 1.1) IVSs: 1.7 cm LVIDs: 2.4 cm LVPWs: 1.6 cm LA Diam: 3.6 cm (2.7 - 3.8) LAESV Index (A-L): 26.93 ml/m Ao Diam: 3.0 cm (2.0 - 3.7) AV Cusp: 1.8 cm (1.5 - 2.6) MV EXCURSION: 14.924 mm (> 18.000) MV EF SLOPE: 96 mm/s (70 - 150) EPSS: 0.2 cm MV E Jose: 0.92 m/s MV DecT: 228 ms MV A Jose: 1.04 m/s MV E/A Ratio: 0.88 RAP: 5.00 mmHg RVSP: 25.88 mmHg FINDINGS -------- Sinus rhythm. This was a technically adequate study. The left ventricular size is normal. There is mild concentric left ventricular hypertrophy. Overa ll left ventricular systolic function is normal with, an EF between 60 - 65 %. The right ventricle is normal in size. Normal LA size by volume 22+/-6 ml/m2. The right atrium is normal in size. The aortic valve is trileaflet and appears structurally normal. Trace to mild aortic regurgitation. The mitral valve is normal. Mild tricuspid regurgitation present. Right ventricular systolic pressure is normal at < 35 mmHg. Trace/mild (physiologic) pulmonic regurgitation. The aortic root size is normal. Normal inferior vena cava with normal inspiratory collapse consistent with estimated right atrial pre ssure of 5 mmHg. The inferior vena cava is mildly dilated. There is no pericardial effusion. CONCLUSIONS -------- 1. Sinus rhythm. 2. This was a technically adequate study. 3. The left ventricular size is normal. 4. There is mild concentric left ventricular hypertrophy. 5. Overall left ventricular systolic function is normal with, an EF between 60 - 65 %. 6. The right ventricle is normal in size. 7. Normal LA size by volume 22+/-6 ml/m2. 8. The right atrium is normal in size. 9. The aortic valve is trileaflet and appears structurally normal. 10. Trace to mild aortic regurgitation. 11. The mitral valve is normal. 12. Mild tricuspid regurgitation present. 13. Right ventricular systolic pressure is normal at < 35 mmHg. 14. Trace/mild (physiologic) pulmonic regurgitation. 15. The aortic root size is normal. 16. Normal inferior vena cava with normal inspiratory collapse consistent with estimated right atrial pressure of 5 mmHg. 17. The inferior vena cava is mildly dilated. 18. There is no pericardial effusion. [employer] APPRAISER: Margarita Hess RDCS
--- NOTE | 2018-10-17 15:52 | P.HPIM ---
History of Present Illness Patient is a esyxvxth-uglb-fac female with history of hypertension and hyperlipidemia came in with the complaints of chest pressure-like sensation was ruled out acute coronary syndromes after which patient underwent stress test which is negative patient will also complaining of bilateral lower extremity edema. No evidence of can start failure and liver failure. Patient probably has chronic venous insufficiency patient was switched from hydrochlorothiazide to Lasix patient was given Lasix after which I did not appreciate any pedal edema. Etiology of chest pain is not clear patient had a CT angios the chest which did not show PE or pneumonia. Patient is clinically doing well will be discharged today. Her chest pain resolved. Patient blood pressure is not that high probably we can taper and the completely this can you clonidine , clonidine is being switched to 0.1 mg twice a day Review of Systems REVIEW OF SYSTEMS: CONSTITUTIONAL: No fever, no malaise, no fatigue. HEENT: No recent visual problems or hearing problems. Denied any sore throat. CARDIOVASCULAR: No orthopnea, PND, no palpitations, no syncope. PULMONARY: No shortness of breath, no cough, no hemoptysis. GASTROINTESTINAL: No diarrhea, no nausea, no vomiting, no abdominal pain. NEUROLOGICAL: No headaches, no weakness, no numbness. HEMATOLOGICAL: Denies any bleeding or petechiae. GENITOURINARY: Denies any burning micturition, frequency, or urgency. MUSCULOSKELETAL/RHEUMATOLOGICAL: Denies any joint pain, swelling, or any muscle pain. ENDOCRINE: Denies any polyuria or polydipsia. The rest of the 14-point review of systems is negative. Past Medical History Past Medical History: Eye Disorder, Hypertension Additional Past Medical History / Comment(s): DIFFICULTY SWALLOWING, STATES NEEDS LASER EYE SX FOR "NARROWING OF EYE" BEING WORKED UP BY CARDIOLOGY FOR "RACING HEART" HAD STRESS TEST AND ECHO 24HR MONITOR HX OF 65 LB WEIGHT LOSS, HX OF KIDNEY STONES, HX OF "BROKEN NECK" History of Any Multi-Drug Resistant Organisms: None Reported Past Surgical History: Orthopedic Surgery Additional Past Surgical History / Comment(s): LEFT SHOULDER SX 10/2013, BENIGN MASS REMOVED X3 LEFT ARM,RT KNEE ARTHROSCOPY, MULT. PAIN CLINIC PROCEDURES Past Anesthesia/Blood Transfusion Reactions: Postoperative Nausea & Vomiting (PONV) Additional Past Anesthesia/Blood Transfusion Reaction / Comment(s): STATES HARD TIME WAKING UP Past Psychological History: No Psychological Hx Reported Smoking Status: Never smoker Past Alcohol Use History: None Reported Past Drug Use History: None Reported Medications and Allergies Home Medications Medication Instructions Recorded Confirmed Type Gabapentin [Neurontin] 400 mg PO TID 11/02/13 10/16/18 History HYDROcodone/APAP 10-325MG [[place] 1 tab PO QID PRN 11/02/13 10/16/18 History 10-325] Ibuprofen [Motrin] 800 mg PO TID 11/02/13 10/16/18 History Nitroglycerin Sl Tabs [Nitrostat] 0.4 mg PO DIRECTED PRN 11/02/13 10/16/18 H istory Omeprazole [PriLOSEC] 20 mg PO AC-BID 11/02/13 10/16/18 History Zolpidem [Ambien] 10 mg PO HS 11/02/13 10/16/18 History tiZANidine [Zanaflex] 4 mg PO Q8HR 11/02/13 10/16/18 History Ondansetron Odt [Zofran ODT] 4 mg PO Q8HR PRN 05/26/16 10/16/18 History Cider Vinegar [Apple Cider Vinegar] 300 mg PO BID 10/16/18 10/16/18 History Ranitidine HCl [Zantac] 150 mg PO HS 10/16/18 10/16/18 History Furosemide [Lasix] 40 mg PO DAILY #90 tab 10/17/18 Rx Rosuvastatin Calcium [Crestor] 10 mg PO DAILY #90 tab 10/17/18 Rx cloNIDine HCL [Catapres] 0.1 mg PO BID #0 10/17/18 10/16/18 Rx Allergies Allergy/AdvReac Type Severity Reaction Status Date / Time adhesive Allergy Unknown Verified 05/26/16 20:20 latex Allergy Rash/Hives Verified 10/16/18 19:14 Physical Exam Vitals: Vital Signs Temp Pulse Pulse Pulse Resp BP BP 10/17/18 12:00 66 71 18 10/17/18 11:45 98.0 F 71 18 128/67 10/17/18 08:00 66 58 L 18 10/17/18 07:45 10/17/18 07:25 97.8 F 58 L 18 10/17/18 04:17 97.8 F 52 L 18 05/17/19 03:29 66 17 10/17/18 00:00 97.7 F 57 L 18 10/16/18 23:23 17 10/16/18 22:53 97.1 F L 63 16 151/80 10/16/18 19:30 60 18 133/69 10/16/18 17:26 98.5 F 69 18 125/67 BP Pulse Ox 10/17/18 12:00 10/17/18 11:45 97 10/17/18 08:00 10/17/18 07:45 98 10/17/18 07:25 109/72 98 10/17/18 04:17 103/64 97 10/17/18 03:29 10/17/18 00:00 148/77 98 10/16/18 23:23 10/16/18 22:53 100 10/16/18 19:30 98 10/16/18 17:26 96 Intake and Output 10/17/18 10/17/18 10/17/18 06:59 14:59 22:59 Other: Voiding Method Toilet Toilet # Voids 1 PHYSICAL EXAMINATION: GENERAL: The patient is alert and oriented x3, not in any acute distress. Well developed, well nourished. HEENT: Pupils are round and equally reacting to light. EOMI. No scleral icterus. No conjunctival pallor. Normocephalic, atraumatic. No pharyngeal erythema. No thyromegaly. CARDIOVASCULAR: S1 and S2 present. No murmurs, rubs, or gallops. PULMONARY: Chest is clear to auscultation, no wheezing or crackles. ABDOMEN: Soft, nontender, nondistended, normoactive bowel sounds. No palpable organomegaly. MUSCULOSKELETAL: No joint swelling or deformity. EXTREMITIES: No cyanosis, clubbing, or pedal edema. NEUROLOGICAL: Gross neurological examination did not reveal any focal deficits. SKIN: No rashes. Results CBC & Chem 7: 10/16/18 19:15 10/16/18 19:15 Labs: Abnormal Lab Results - Last 24 Hours (Table) 10/16/18 10/16/18 10/16/18 Range/Units 19:15 19:15 19:15 Hgb 11.1 L (11.4-16.0) gm/dL Hct 33.6 L (34.0-46.0) % D-Dimer 0.65 H (<0.60) mg/L FEU AST 37 H (14-36) U/L Triglycerides (<150) mg/dL Cholesterol (<200) mg/dL LDL Cholesterol, Calc (0-99) mg/dL HDL Cholesterol (40-60) mg/dL 10/16/18 Range/Units 19:15 Hgb (11.4-16.0) gm/dL Hct (34.0-46.0) % D-Dimer (<0.60) mg/L FEU AST (14-36) U/L Triglycerides 386 H (<150) mg/dL Cholesterol 214 H (<200) mg/dL LDL Cholesterol, Calc 107 H (0-99) mg/dL HDL Cholesterol 30 L (40-60) mg/dL Thrombosis Risk Factor Assmnt - Choose All That Apply Each Factor Represents 1 point: Age 41-60 years, Obesity (BMI >25) Other Risk Factors: No Thrombosis Risk Factor Assessment Total Risk Factor Score: 2 Thrombosis Risk Factor Assessment Level: Low Risk Assessment and Plan Plan: Chest pain: Etiology is not clear to rule out a pulmonary embolism ruled out acute coronary syndrome/unstable angina. Stress test was negative. -Bilateral pedal edema probably due to venous insufficiency -Hypertension management as mentioned above -Hyperlipidemia -Obesity: Counseling was provided Patient will be discharged today.
--- NOTE | 2018-10-17 15:52 | P.DS ---
Providers Date of admission: 10/16/18 22:34 Attending physician: Olayinka Munoz Consults: 10/16/18 22:43 Consult Physician Urgent Consulting Provider: Desiree Cisse Consult Reason/Comments: chest pain Do you want consulting provider notified?: Yes Primary care physician: Olayinka Munoz [facility] Course: Reason for to my history of present illness for further details Patient Condition at Discharge: Serious Plan - Discharge Summary Discharge Rx Participant: Yes New Discharge Prescriptions: New Furosemide [Lasix] 40 mg PO DAILY #90 tab Rosuvastatin Calcium [Crestor] 10 mg PO DAILY #90 tab Continue tiZANidine [Zanaflex] 4 mg PO Q8HR Omeprazole [PriLOSEC] 20 mg PO AC-BID Gabapentin [Neurontin] 400 mg PO TID Zolpidem [Ambien] 10 mg PO HS Nitroglycerin Sl Tabs [Nitrostat] 0.4 mg PO DIRECTED PRN PRN Reason: Angina Ibuprofen [Motrin] 800 mg PO TID HYDROcodone/APAP 10-325MG [[place] 10-325] 1 tab PO QID PRN PRN Reason: Pain Ondansetron Odt [Zofran ODT] 4 mg PO Q8HR PRN PRN Reason: Nausea Ranitidine HCl [Zantac] 150 mg PO HS Cider Vinegar [Apple Cider Vinegar] 300 mg PO BID Changed cloNIDine HCL [Catapres] 0.1 mg PO BID #0 Discontinued Hydrochlorothiazide [Hydrodiuril] 25 mg PO DAILY Hydrochlorothiazide 25 mg PO DAILY Discharge Medication List Gabapentin [Neurontin] 400 mg PO TID 11/02/13 [History] HYDROcodone/APAP 10-325MG [[place] 10-325] 1 tab PO QID PRN 11/02/13 [History] Ibuprofen [Motrin] 800 mg PO TID 11/02/13 [History] Nitroglycerin Sl Tabs [Nitrostat] 0.4 mg PO DIRECTED PRN 11/02/13 [History] Omeprazole [PriLOSEC] 20 mg PO AC-BID 11/02/13 [History] Zolpidem [Ambien] 10 mg PO HS 11/02/13 [History] tiZANidine [Zanaflex] 4 mg PO Q8HR 11/02/13 [History] Ondansetron Odt [Zofran ODT] 4 mg PO Q8HR PRN 05/26/16 [History] Cider Vinegar [Apple Cider Vinegar] 300 mg PO BID 10/16/18 [History] Ranitidine HCl [Zantac] 150 mg PO HS 10/16/18 [History] Furosemide [Lasix] 40 mg PO DAILY #90 tab 10/17/18 [Rx] Rosuvastatin Calcium [Crestor] 10 mg PO DAILY #90 tab 10/17/18 [Rx] cloNIDine HCL [Catapres] 0.1 mg PO BID #0 10/17/18 [Rx] Follow up Appointment(s)/Referral(s): Olayinka Munoz MD [Primary Care Provider] - 3 Days Tereso Soliz MD [STAFF PHYSICIAN] - 2 Weeks (pt requested to make her own appointment. ) Discharge Disposition: HOME SELF-CARE
[2018-10-17] MEDS ORDERED: tiZANidine 4 MG TAB PO SCH (16:00)
[2018-10-18] MEDS ORDERED: ASPIRIN 81 MG PO SCH (09:00)
== END 2018-10-17 16:15 | disposition home or self-care (01) ==
LOC: EC 16:58 → 1SOBS 22:34
PROVIDERS: ADMIT Family Medicine; ATTEND Family Medicine
DX: R07.89 Other chest pain (principal); R06.02 Shortness of breath; R60.0 Localized edema; R79.89 Other specified abnormal findings of blood chemistry; M79.10 Myalgia, unspecified site; M79.604 Pain in right leg; I10 Essential (primary) hypertension; H57.9 Unspecified disorder of eye and adnexa; R13.10 Dysphagia, unspecified; R00.0 Tachycardia, unspecified; E78.5 Hyperlipidemia, unspecified; R00.2 Palpitations; E66.9 Obesity, unspecified; Z68.36 Body mass index [BMI] 36.0-36.9, adult; Z79.1 Long term (current) use of non-steroidal anti-inflammatories (NSAID); Z79.899 Other long term (current) drug therapy; Z91.040 Latex allergy status; Z91.048 Other nonmedicinal substance allergy status; Z87.442 Personal history of urinary calculi; Z87.81 Personal history of (healed) traumatic fracture
CPT/HCPCS: 96360; 96361; 99285; 36415; 94760; 93005; 93306; 93351; 85379; 83880; 80061; 80053; 83735; 84484 ×2; 85025; 85610; 85730; 81003; 81025; 71046; 93971; 71275; G0378 ×2; Q9967

== ENCOUNTER → 2018-10-24 | Outpatient (CLI) | payer MEDICARE ==
--- NOTE | 2018-10-28 12:18 | MM ---
Reason for exam: screening (asymptomatic). Last mammogram was performed 1 year and 8 months ago. History: Patient is postmenopausal. Family history of breast cancer in 2 maternal aunts at age 50. Physical Findings: A clinical breast exam by your physician is recommended on an annual basis and results should be correlated with mammographic findings. MG 3D Screening Mammo W/Cad Bilateral CC and MLO view(s) were taken. Prior study comparison: February 19, 2017, bilateral MG 3d screening mammo w/cad. December 12, 2015, bilateral MG 3d screening mammo w/cad. There are scattered fibroglandular densities. No suspicious abnormality. No significant changes when compared with prior studies. ASSESSMENT: Negative, BI-RAD 1 RECOMMENDATION: Routine screening mammogram of both breasts in 1 year.
== END | disposition home or self-care (01) ==
LOC: RADMAMWWP 11:39
PROVIDERS: ATTEND Family Medicine
DX: Z12.31 Encounter for screening mammogram for malignant neoplasm of breast (principal)
CPT/HCPCS: 77063; 77067

== ENCOUNTER 2019-02-05 20:42 | Emergency (ER) | payer MEDICARE ==
[2019-02-05 21:43] VITALS: RESP 18
[2019-02-05] MEDS ORDERED: ONDANSETRON 4 MG/2 ML VIAL IVP STA (22:31)
[2019-02-05 22:59] LABS: Basophils # (A) 0.1 k/uL (0-0.2); Basophils % (A) 1 %; Eosinophils # (A) 0.2 k/uL (0-0.7); Eosinophils % (A) 2 %; HCT 37.1 % (34.0-46.0); HGB 12.8 gm/dL (11.4-16.0); Lymphocytes # (A) 3.5 k/uL (1.0-4.8); Lymphocytes % (A) 30 %; MCHC 34.5 g/dL (31.0-37.0); MCV 84.2 fL (80.0-100.0); Monocytes # (A) 0.7 k/uL (0-1.0); Monocytes % (A) 6 %; Neutrophils # (A) 6.9 k/uL (1.3-7.7); Neutrophils % (A) 60 %; Platelet Count 325 k/uL (150-450); RBC 4.41 m/uL (3.80-5.40); RDW 15.1 % (11.5-15.5); WBC 11.6 k/uL (3.8-10.6)
[2019-02-05 23:08] LABS: Albumin 4.5 g/dL (3.5-5.0); Calcium 9.9 mg/dL (8.4-10.2); Potassium 3.2 mmol/L (3.5-5.1); Total Bilirubin 0.2 mg/dL (0.2-1.3); Total Protein 8.3 g/dL (6.3-8.2)
--- NOTE | 2019-02-05 23:17 | CT ---
EXAM: CT Head Without Intravenous Contrast CLINICAL HISTORY: ITS.REASON CT Reason: Pain TECHNIQUE: Axial computed tomography images of the head/brain without intravenous contrast. CTDI is 45.2 mGy and DLP is 999.6 mGy-cm. This CT exam was performed using one or more of the following dose reduction techniques: automated exposure control, adjustment of the mA and/or kV according to patient size, and/or use of iterative reconstruction technique. COMPARISON: 05/26/2016. FINDINGS: Brain: No abnormal extra-axial collection. No hemorrhage. Midline shift: There is no midline shift or mass-effect. Ventricles: The ventricular system is age appropriate. Bones/joints: Bony skull is unremarkable. No acute fracture. Soft tissues: Unremarkable. Sinuses: Unremarkable as visualized. No acute sinusitis. Mastoid air cells: Visualized sinuses and mastoid air cells are unremarkable. IMPRESSION: No acute findings. EXAM: CT Cervical Spine Without Intravenous Contrast CLINICAL HISTORY: ITS.REASON CT Reason: Pain TECHNIQUE: Axial computed tomography images of the cervical spine without intravenous contrast. CTDI is 19.2 mGy and DLP is 458.2 mGy-cm. This CT exam was performed using one or more of the following dose reduction techniques: automated exposure control, adjustment of the mA and/or kV according to patient size, and/or use of iterative reconstruction technique. COMPARISON: None. FINDINGS: Vertebrae: There is straightening and reversal of the curvature of the cervical spine, possibly on the basis of muscle spasm. Normal relationship of C1 and C2. No acute fracture. Discs/spinal canal/neural foramina: No acute findings. No spinal canal stenosis. Soft tissues: Prevertebral soft tissues are unremarkable. Paraspinal soft tissues are unremarkable. Lung apices: Lung apices are unremarkable. Other findings: Spinous processes are unremarkable. IMPRESSION: Normal relationship of C1 and C2. Normal alignment. No evidence of acute injury.
[2019-02-05] MEDS ORDERED: POTASSIUM CHLORIDE ER 20 MEQ TAB.ER PO STA (23:46)
--- NOTE | 2019-02-06 00:05 | ED ---
General Adult HPI - General Chief complaint: Recheck/Abnormal Lab/Rx Stated complaint: carbon dioxide poisoning Time Seen by Provider: 02/05/19 22:08 Source: patient, RN notes reviewed, old records reviewed Mode of arrival: wheelchair Limitations: no limitations - History of Present Illness Initial comments: 53-year-old female patient with no pertinent past symptoms CU chief complaint of possible carbon monoxide exposure. Patient reports that she has had difficulties with her still, has smelled the smell of gas for approximately 4 days. Patient reports that she has been opening her windows and ventilating her house. Patient states that when the [employer] came to evaluate issue yesterday they told her that her carbon monoxide level was elevated. Patient reports that she has had a headache towards the crown of her head for approximately 2 days. Patient also reports nausea. Patient presents ED for evaluation of possible exposure. Denies any chest pain or shortness of breath. No other complaints at this time. Systemic: Pt denies fatigue, fever/chills, rash. Pt denies weakness, night sweats, weight loss. Neuro: Pt denies visual disturbances, syncope or pre-syncope. HEENT: Pt denies ocular discharge or irritation, otalgia, rhinorrhea, pharyngitis or notable lymphadenopathy. Cardiopulmonary: Pt denies chest pain, SOB, heart palpitations, dyspnea on exertion. Abdominal/GI: Pt denies abdominal pain, n/v/d. : Pt denies dysuria, burning w/ urination, frequency/urgency. Denies new onset urinary or bowel incontinence. MSK: Pt denies myalgia, loss of strength or function in extremities. Neuro: Pt denies new onset weakness, paresthesias. - Related Data Home Medications Medication Instructions Recorded Confirmed Gabapentin [Neurontin] 400 mg PO TID 11/02/13 02/05/19 HYDROcodone/APAP 10-325MG [[place] 1 tab PO QID PRN 11/02/13 02/05/19 10-325] Nitroglycerin Sl Tabs [Nitrostat] 0.4 mg PO Q5M PRN 11/02/13 02/05/19 Omeprazole [PriLOSEC] 20 mg PO AC-BID 11/02/13 02/05/19 Zolpidem [Ambien] 10 mg PO HS 11/02/13 02/05/19 tiZANidine [Zanaflex] 4 mg PO Q8HR PRN 11/02/13 02/05/19 Ondansetron Odt [Zofran ODT] 4 mg PO Q8HR PRN 05/26/16 02/05/19 Cider Vinegar [Apple Cider Vinegar] 300 mg PO BID 10/16/18 02/05/19 Ranitidine HCl [Zantac] 150 mg PO HS 10/16/18 02/05/19 cloNIDine HCL [Catapres] 0.1 mg PO TID 02/05/19 02/05/19 Previous Rx's Medication Instructions Recorded Furosemide [Lasix] 40 mg PO DAILY #90 tab 10/17/18 Allergies Allergy/AdvReac Type Severity Reaction Status Date / Time adhesive Allergy Unknown Verified 02/05/19 22:27 latex Allergy Rash/Hives Verified 02/05/19 22:27 Review of Systems ROS Statement: Those systems with pertinent positive or pertinent negative responses have been documented in the HPI. ROS Other: All systems not noted in ROS Statement are negative. Past Medical History Past Medical History: Eye Disorder, Hypertension Additional Past Medical History / Comment(s): DIFFICULTY SWALLOWING, STATES NEEDS LASER EYE SX FOR "NARROWING OF EYE" BEING WORKED UP BY CARDIOLOGY FOR "RACING HEART" HAD STRESS TEST AND ECHO 24HR MONITOR HX OF 65 LB WEIGHT LOSS, HX OF KIDNEY STONES, HX OF "BROKEN NECK" History of Any Multi-Drug Resistant Organisms: None Reported Past Surgical History: Orthopedic Surgery Additional Past Surgical History / Comment(s): LEFT SHOULDER SX 10/2013, BENIGN MASS REMOVED X3 LEFT ARM,RT KNEE ARTHROSCOPY, MULT. PAIN CLINIC PROCEDURES, neck surgery Past Anesthesia/Blood Transfusion Reactions: Postoperative Nausea & Vomiting (PONV) Additional Past Anesthesia/Blood Transfusion Reaction / Comment(s): STATES HARD TIME WAKING UP Past Psychological History: No Psychological Hx Reported Smoking Status: Never smoker Past Alcohol Use History: None Reported Past Drug Use History: None Reported General Exam - General Exam Comments Initial Comments: Constitutional: NAD, AOX3, Pt has pleasant affect. HEENT: NC/AT, trachea midline, neck supple, no lymphadenopathy. Posterior pharynx non erythematous, without exudates. External ears appear normal, without discharge. Mucous membranes moist. Eyes PERRLA, EOM intact. There is no scleral icterus. No pallor noted. Cardiopulmonary: RRR, no murmurs, rubs or gallops, no JVD noted. Lungs CTAB in anterior and posterior [place]. No peripheral edema. Abdominal exam: Abdomen soft and non-distended. Abdomen non-tender to palpation in all 4 quadrants. Bowel sounds active in LLQ. No hepatosplenomegaly. No ecchymosis Neuro: CN II-XII intact. No nuchal rigidity. No raccon eyes, no nguyen sign, no hemotympanum. No cervical spinal tenderness. MSK: No posterior calf tenderness bilaterally, homans sign negative bilaterally. Posterior tibialis and radial pulse +2 bilaterally. Sensation intact in upper and lower extremities. Full active ROM in upper and lower extremities, 5/5 stregnth. Limitations: no limitations Course Vital Signs 02/05/19 21:37 Temperature 97.9 F Pulse Rate 89 Respiratory 18 Rate Blood Pressure 151/85 O2 Sat by Pulse 99 Oximetry Medical Decision Making - Medical Decision Making 53-year-old female patient with no pertinent past symptoms CU chief complaint of possible carbon monoxide exposure. Patient reports that she has had difficulties with her still, has smelled the smell of gas for approximately 4 days. Patient reports that she has been opening her windows and ventilating her house. Patient states that when the gas company came to evaluate issue yesterday they told her that her carbon monoxide level was elevated. Patient reports that she has had a headache towards the crown of her head for approximately 2 days. Patient also reports nausea. Patient presents ED for evaluation of possible exposure. Denies any chest pain or shortness of breath. No other complaints at this time. Patient will signs stable, afebrile. Physical exam did not acute pathology. Neurologic exam within normal limits. Laboratory investigations revealed mild leukocytosis 11.6. CMP revealed mild hypokalemia 3.2, supplemented in ED. Carbon monoxide quadrant 1.9. Troponin negative. EKG not concerning for acute ischemia. Patient was placed on nonrebreather while workup was obtained. Patient headache resolved with nonrebreather. This is suggestive of possible cluster type headache. Patient states that she has had a headache disorder. Patient is currently asymptomatic. Patient discharged. Patient states that carbon monoxide issue. House was resolved. Return precautions discussed. Case discussed with Dr. Harvey. - Lab Data Result diagrams: 02/05/19 22:40 02/05/19 22:40 Lab Results 02/05/19 02/05/19 02/05/19 Range/Units 22:40 22:40 22:40 WBC 11.6 H (3.8-10.6) k/uL RBC 4.41 (3.80-5.40) m/uL Hgb 12.8 (11.4-16.0) gm/dL Hct 37.1 (34.0-46.0) % MCV 84.2 (80.0-100.0) fL MCH 29.0 (25.0-35.0) pg MCHC 34.5 (31.0-37.0) g/dL RDW 15.1 (11.5-15.5) % Plt Count 325 (150-450) k/uL Neutrophils % 60 % Lymphocytes % 30 % Monocytes % 6 % Eosinophils % 2 % Basophils % 1 % Neutrophils # 6.9 (1.3-7.7) k/uL Lymphocytes # 3.5 (1.0-4.8) k/uL Monocytes # 0.7 (0-1.0) k/uL Eosinophils # 0.2 (0-0.7) k/uL Basophils # 0.1 (0-0.2) k/uL Carbon Monoxide, Quant 1.9 (<10.0) % Sodium 142 (137-145) mmol/L Potassium 3.2 L (3.5-5.1) mmol/L Chloride 103 (98-107) mmol/L Carbon Dioxide 26 (22-30) mmol/L Anion Gap 13 mmol/L BUN 18 H (7-17) mg/dL Creatinine 1.01 (0.52-1.04) mg/dL Est GFR (CKD-EPI)AfAm 73 (>60 ml/min/1.73 sqM) Est GFR (CKD-EPI)NonAf 63 (>60 ml/min/1.73 sqM) Glucose 145 H (74-99) mg/dL Plasma Lactic Acid Michael (0.7-2.0) mmol/L Calcium 9.9 (8.4-10.2) mg/dL Total Bilirubin 0.2 (0.2-1.3) mg/dL AST 35 (14-36) U/L ALT 31 (9-52) U/L Alkaline Phosphatase 120 (38-126) U/L Creatine Kinase 120 (30-135) U/L Troponin I (0.000-0.034) ng/mL Total Protein 8.3 H (6.3-8.2) g/dL Albumin 4.5 (3.5-5.0) g/dL 02/05/19 02/05/19 Range/Units 22:40 22:40 WBC (3.8-10.6) k/uL RBC (3.80-5.40) m/uL Hgb (11.4-16.0) gm/dL Hct (34.0-46.0) % MCV (80.0-100.0) fL MCH (25.0-35.0) pg MCHC (31.0-37.0) g/dL RDW (11.5-15.5) % Plt Count (150-450) k/uL Neutrophils % % Lymphocytes % % Monocytes % % Eosinophils % % Basophils % % Neutrophils # (1.3-7.7) k/uL Lymphocytes # (1.0-4.8) k/uL Monocytes # (0-1.0) k/uL Eosinophils # (0-0.7) k/uL Basophils # (0-0.2) k/uL Carbon Monoxide, Quant (<10.0) % Sodium (137-145) mmol/L Potassium (3.5-5.1) mmol/L Chloride (98-107) mmol/L Carbon Dioxide (22-30) mmol/L Anion Gap mmol/L BUN (7-17) mg/dL Creatinine (0.52-1.04) mg/dL Est GFR (CKD-EPI)AfAm (>60 ml/min/1.73 sqM) Est GFR (CKD-EPI)NonAf (>60 ml/min/1.73 sqM) Glucose (74-99) mg/dL Plasma Lactic Acid Michael 1.8 (0.7-2.0) mmol/L Calcium (8.4-10.2) mg/dL Total Bilirubin (0.2-1.3) mg/dL AST (14-36) U/L ALT (9-52) U/L Alkaline Phosphatase (38-126) U/L Creatine Kinase (30-135) U/L Troponin I <0.012 (0.000-0.034) ng/mL Total Protein (6.3-8.2) g/dL Albumin (3.5-5.0) g/dL - EKG Data -: EKG Interpreted by Me (and Dr. Harvey ) EKG Comments: Ventricular rate 71, MN interval 128, QRS 82, QT/QTc 416/452. Normal sinus rhythm, normal EKG, no concern for acute ischemia. Disposition Clinical Impression: Carbon monoxide exposure, Headache Disposition: HOME SELF-CARE Condition: Stable Instructions (If sedation given, give patient instructions): Carbon Monoxide Poisoning (ED), Cluster Headache (ED), Acute Headache (ED) Additional Instructions: Patient to adhere to previously discussed treatment plan and will take medication(s) as directed. Patient to follow up with PCP in 1-2 days. Patient to return to ED if symptoms do not improve. Follow up with primary care provider tomorrow, return to ER if condition worsens. Is patient prescribed a controlled substance at d/c from ED?: No Referrals: Olayinka Munoz MD [Primary Care Provider] - 1-2 days
[2019-02-06 00:20] VITALS: BP 163/84; PULSE 70; TEMP 98.3
== END 2019-02-06 00:18 | disposition home or self-care (01) ==
LOC: EC 20:42
DX: T75.89XA Other specified effects of external causes, initial encounter (principal); R51 Headache; I10 Essential (primary) hypertension; Z91.040 Latex allergy status; Z91.048 Other nonmedicinal substance allergy status; Z79.899 Other long term (current) drug therapy; Y92.009 Unspecified place in unspecified non-institutional (private) residence as the place of occurrence of the external cause
CPT/HCPCS: 36415; 93005; 80053; 82375; 82550; 83605; 84484; 85025; 72125; 70450; 99285; 96374; J2405

== ENCOUNTER → 2020-10-19 | Outpatient (CLI) | payer MEDICARE ==
--- NOTE | 2020-10-20 12:38 | BD ---
EXAMINATION TYPE: Axial Bone Density DATE OF EXAM: 10/19/2020 COMPARISON: 12/12/2015 CLINICAL HISTORY: Postmenopausal female Height: 62.5 IN Weight: 206 LBS FRAX RISK QUESTIONS: History of Fracture in Adulthood: LT ELBOW AGE 50; Secondary Osteoporosis: 3. Menopause before 45: AGE 40 RISK FACTORS HISTORY OF: Active: YES Diet low in dairy products/other sources of calcium: YES Postmenopausal woman: AGE 40 Lost more than 2 inches in height since high school: YES 3" MEDICATIONS: Additional Medications: CALCIUM, VIT D, NEUROTIN,MOTRIN, PRILOSEC, NORCO, BLOOD PRESSURE, WATER PILL, AMBIEN, MUSCLE RELAXER, ALLERGY PILL, EXAM MEASUREMENTS: Bone mineral densitometry was performed using the Comunitae System. Bone mineral density as measured about the Lumbar spine is: ----- L1-L4(G/cm2): 1.143 T Score Values are as follows: ----- L2: -0.2 ----- L3: -0.3 ----- L4: -0.6 ----- L1-L4: -0.3 Bone mineral density has: Decreased -7.8% since study of: 12/12/2015 Bone mineral density about the R hip (g/cm2): 0.859 Bone mineral density about the L hip (g/cm2): 0.842 T Score values are as follows: -----R Neck: -1.3 -----L Neck: -1.4 -----R Total: -0.5 -----L Total: -0.2 Bone mineral density has: Decreased -8.3% since study of: 12/12/2015 IMPRESSION: Osteopenia (T Score between -2.5 and -1) is now present. There is slightly increased risk of fracture and the patient may be considered for treatment. Re-Screen 2-5 years. NOTE: T-SCORE=SD OF THE YOUNG ADULT MEAN.
--- NOTE | 2020-10-24 09:31 | MM ---
Reason for exam: screening (asymptomatic). Last mammogram was performed 2 years ago. History: Patient is postmenopausal. Family history of breast cancer in 2 maternal aunts at age 50. Physical Findings: A clinical breast exam by your physician is recommended on an annual basis and results should be correlated with mammographic findings. MG 3D Screening Mammo W/Cad Bilateral CC and MLO view(s) were taken. Prior study comparison: October 24, 2018, bilateral MG 3d screening mammo w/cad. February 19, 2017, bilateral MG 3d screening mammo w/cad. There are scattered fibroglandular densities. ASSESSMENT: Benign, BI-RAD 2 RECOMMENDATION: Routine screening mammogram of both breasts in 1 year.
== END | disposition home or self-care (01) ==
LOC: RADMAMWWP 09:53
PROVIDERS: ATTEND Family Medicine
DX: Z12.31 Encounter for screening mammogram for malignant neoplasm of breast (principal); M85.89 Other specified disorders of bone density and structure, multiple sites; Z78.0 Asymptomatic menopausal state; Z80.3 Family history of malignant neoplasm of breast
CPT/HCPCS: 77063; 77067; 77080

== ENCOUNTER 2020-11-08 19:17 | Emergency (ER) | payer MEDICARE ==
[2020-11-08 19:25] VITALS: TEMP 98
[2020-11-08] MEDS ORDERED: ONDANSETRON ODT 4 MG TAB PO STA (19:52)
[2020-11-08] MEDS ORDERED: DIPH,PERTUS(ACELL)TETVAC-LF 0.5 ML VIAL IM ONE (19:54)
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
--- NOTE | 2020-11-08 20:52 | XR ---
EXAMINATION TYPE: XR elbow complete LT DATE OF EXAM: 11/08/2020 COMPARISON: NONE HISTORY: Pain TECHNIQUE: 3 views FINDINGS: I see no fracture nor dislocation. Elbow joint spaces are normal. There is no sign of joint effusion. IMPRESSION: Negative left elbow exam.
--- NOTE | 2020-11-08 20:53 | XR ---
EXAMINATION TYPE: XR knee complete LT DATE OF EXAM: 11/08/2020 COMPARISON: NONE HISTORY: Pain TECHNIQUE: 3 views FINDINGS: I see no fracture nor dislocation. Joint spaces are fairly normal. There is no sign of join t effusion. IMPRESSION: Negative left knee exam.
--- NOTE | 2020-11-08 20:55 | XR ---
EXAMINATION TYPE: XR tibia fibula RT DATE OF EXAM: 11/08/2020 COMPARISON: NONE HISTORY: Pain TECHNIQUE: 3 views FINDINGS: There is moderate narrowing of the medial joint space of the knee. Tibia and fibula appear intact. I see no fracture nor dislocation. There is plantar calcaneal spurring. IMPRESSION: No fracture seen. Moderate osteoarthritis in the medial joint space of the right knee.
--- NOTE | 2020-11-08 20:56 | XR ---
EXAMINATION TYPE: XR ankle complete RT DATE OF EXAM: 11/08/2020 COMPARISON: NONE HISTORY: Pain TECHNIQUE: 3 views FINDINGS: Ankle mortise is anatomic. I see no fracture nor dislocation. There is plantar calcaneal sp urring. IMPRESSION: No acute abnormality of the right ankle. No fracture.
--- NOTE | 2020-11-08 20:57 | XR ---
EXAMINATION TYPE: XR shoulder complete LT DATE OF EXAM: 11/08/2020 COMPARISON: NONE HISTORY: Pain TECHNIQUE: 3 views FINDINGS: I see no fracture nor dislocation. Joint spaces are normal. There is intact glenohumeral hubert int. IMPRESSION: Negative left shoulder exam.
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
[2020-11-08] MEDS ORDERED: BACITRACIN OINT 1 EACH PACKET TOPICAL ONE (21:16)
[2020-11-08 21:46] VITALS: BP 141/83; PULSE 77; RESP 16
== END 2020-11-08 22:18 | disposition home or self-care (01) ==
LOC: EC 19:17
DX: S16.1XXA Strain of muscle, fascia and tendon at neck level, initial encounter (principal); S80.11XA Contusion of right lower leg, initial encounter; S50.312A Abrasion of left elbow, initial encounter; S80.212A Abrasion, left knee, initial encounter; I10 Essential (primary) hypertension; V29.9XXA Motorcycle rider (driver) (passenger) injured in unspecified traffic accident, initial encounter; Y93.55 Activity, bike riding; Z23 Encounter for immunization
CPT/HCPCS: 70450; 72125; 90471; 90715; 99284

== ENCOUNTER 2020-11-15 18:55 | Emergency (ER) | payer MEDICARE, OTHER ==
[2020-11-15 19:03] VITALS: TEMP 97.5
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
[2020-11-15 23:53] VITALS: BP 131/71; PULSE 71; RESP 16
== END 2020-11-15 23:50 | disposition home or self-care (01) ==
LOC: EC 18:55
DX: S80.11XA Contusion of right lower leg, initial encounter (principal); S80.212A Abrasion, left knee, initial encounter; S50.312A Abrasion of left elbow, initial encounter; I10 Essential (primary) hypertension; Z79.899 Other long term (current) drug therapy; V19.9XXA Pedal cyclist (driver) (passenger) injured in unspecified traffic accident, initial encounter; Y92.410 Unspecified street and highway as the place of occurrence of the external cause
CPT/HCPCS: 93970; 99284

== ENCOUNTER → 2020-12-06 | Outpatient (CLI) | payer OTHER ==
--- NOTE | 2020-12-06 18:16 | CT ---
EXAMINATION TYPE: CT abdomen pelvis wo con DATE OF EXAM: 12/06/2020 COMPARISON: September 02, 2013 HISTORY: lOWER ABD PAIN CT DLP: 1133 mGycm Automated exposure control for dose reduction was used. Images obtained from the diaphragm to the floor the pelvis with no contrast. The lung bases are clear. There is no pleural effusion. Heart size is normal. There is no pericardial effusion. Liver spleen stomach pancreas appear normal. The bile ducts are not dilated. There are clips from cho lecystectomy. There is no adrenal mass. Kidneys have normal size and contour. There is no hydronephrosis. The urete rs are not dilated. There is no retroperitoneal adenopathy. The bladder distends smoothly. There is n o inguinal hernia. There is no free fluid in the pelvis. Uterus is retroverted. There is soft tissue density on the anterior uterine fundus that is probably a fibroid measuring 3.5 cm. There are a few s igmoid diverticula. There is no diverticulitis. There is no mesenteric edema. There is no ascites or free air. There is no bowel obstruction. The natan endix appears normal. The lumbar vertebra have normal alignment. There is no compression fracture. Th e bony pelvis appears intact. The hip joints are intact. IMPRESSION: Normal appendix. No evidence of renal stone or obstruction. Minimal sigmoid diverticulosis.
== END | disposition home or self-care (01) ==
LOC: RADCTMAIN 16:50
PROVIDERS: ATTEND Family Medicine
DX: K57.30 Diverticulosis of large intestine without perforation or abscess without bleeding (principal)
CPT/HCPCS: 74176

== ENCOUNTER → 2022-05-28 | Outpatient (CLI) | payer MEDICARE ==
--- NOTE | 2022-05-29 08:42 | MM ---
Reason for Exam: Screening (asymptomatic). Last mammogram was performed 1 year(s) and 7 month(s) ago. Patient History: Menarche at age 10. Postmenopausal. Maternal aunt had breast cancer, age 50. Maternal aunt had breast cancer, age 50. Risk Values: [place] 5 year model risk: 1.0%. NCI Lifetime model risk: 5.6%. Prior Study Comparison: 02/19/2017 Bilateral Screening Mammogram, [facility]. 10/24/2018 Bilateral Screening Mammogram, [facility]. 10/19/2020 Bilateral Screening Mammogram, [facility]. Tissue Density: There are scattered fibroglandular densities. Findings: Analyzed By CAD. There is no suspicious group of microcalcifications or new suspicious mass in either breast. No significant change from prior exams. Overall Assessment: Benign, BI-RAD 2 Management: Screening Mammogram of both breasts in 1 year. A clinical breast exam by your physician is recommended on an annual basis and results should be correlated with mammographic findings. Electronically signed and approved by: Ruel Nieves D.O.
== END | disposition home or self-care (01) ==
LOC: RADMAMWWP 11:13
PROVIDERS: ATTEND Family Medicine
DX: Z12.31 Encounter for screening mammogram for malignant neoplasm of breast (principal); Z78.0 Asymptomatic menopausal state; Z80.3 Family history of malignant neoplasm of breast
CPT/HCPCS: 77063; 77067

== ENCOUNTER → 2022-12-12 | Outpatient (CLI) | payer MEDICARE ==
--- NOTE | 2022-12-12 14:01 | XR ---
EXAMINATION TYPE: XR cervical spine comp DATE OF EXAM: 12/12/2022 COMPARISON: 05/22/2018 HISTORY: Pain TECHNIQUE: Four views are submitted. FINDINGS: The odontoid is intact. There are no compression deformities. The prevertebral soft tissue structur es are within normal limits. Calcifications in the soft tissue the neck appear to be vascular. There is a 3 mm anterolisthesis C4 on C5. Loss of the normal cervical lordosis. Multilevel facet arthropat hy. There is mild multilevel degenerative disc disease. IMPRESSION: 1. Mild multilevel degenerative disc disease and facet arthropathy. There is a anterolisthesis of C4 on C5. This is similar to the prior exam of 2018. . Correlate with MRI as clinically warranted.
== END | disposition home or self-care (01) ==
LOC: RADXRMAIN 13:18
PROVIDERS: ATTEND Physical Medicine & Rehabilitation
DX: M50.30 Other cervical disc degeneration, unspecified cervical region (principal); M43.12 Spondylolisthesis, cervical region; M47.812 Spondylosis without myelopathy or radiculopathy, cervical region
CPT/HCPCS: 72050

== ENCOUNTER 2023-04-02 07:46 | Day surgery (SDC) | payer MEDICARE ==
[2023-04-01 10:37] VITALS: BMI 35.2
[2023-04-02] MEDS ORDERED: LACTATED RINGERS 1,000 ML IV ONE (08:07)
[2023-04-02 08:29] LABS: Glucose,Whole Blood 136 mg/dL (70-110)
[2023-04-02] MEDS ORDERED: LACTATED RINGERS 1,000 ML IV SCH (08:30)
[2023-04-02] MEDS ORDERED: LIDOCAINE 1% (10MG/ML) FOR IV START INTRADERMA PRN (08:30)
[2023-04-02] MEDS ORDERED: ONDANSETRON 4 MG/2 ML VIAL IVP ONE (08:33)
[2023-04-02] MEDS ORDERED: ONDANSETRON 4 MG/2 ML VIAL ONE (08:33)
[2023-04-02 08:49] VITALS: TEMP 97.5
[2023-04-02] MEDS ORDERED: LIDOCAINE 1% INJ 10MG/ML (20 ML MDV) ONE (09:14)
[2023-04-02] MEDS ORDERED: PROPOFOL 10 MG/ML 20 ML VIAL IV ONE (09:14)
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
--- NOTE | 2023-04-02 09:39 | P.PCN ---
Date of Procedure: 04/02/23 Procedure(s) Performed: PREOPERATIVE DIAGNOSIS: GERD, screening, abdominal pain POSTOPERATIVE DIAGNOSIS: Mild gastritis, small gastric polyp, diverticulosis PROCEDURE: 1. EGD with biopsy 2. Colonoscopy ANESTHESIA: MAC SURGEON: Pete Crabtree M.D. SPECIMENS: Antrum, gastric polyp ENDOSCOPIC PROCEDURE: The patient was on the endoscopy table in the left decubitus position. The Olympus gastroscope was inserted into the oropharynx and passed under direct visualization to the region of the third portion of the duodenum. From that point the scope was slowly withdrawn inspecting all surfaces carefully. There were no neoplastic inflammatory or polypoid lesions throughout the duodenum. The pylorus was widely patent. The stomach was carefully inspected. There was gastritis present.. A biopsy of the antrum took place to rule out H. pylori. The patient also had a proximal gastric polyp that was biopsied. Is quite small. Retroflexion revealed a normal hiatus. The esophagus was then carefully examined. There were no neoplastic inflammatory or polypoid lesions throughout the visualized esophagus. The patient was kept on the endoscopy table in the left decubitus position. The Olympus colonoscope was inserted into the anus and passed under direct visualization to the base of the cecum. The appendiceal orifice was visualized. From that point the scope was slowly withdrawn inspecting all surfaces carefully. There were no neoplastic inflammatory or polypoid lesions throughout the cecum, ascending, transverse, descending, sigmoid and rectum. There was mild scattered diverticulosis noted throughout the colon. The patient's prep was slightly suboptimal. the patient's ileocecal valve was lipomatous. Digital rectal examination was normal. The patient was taken to the recovery room in stable condition per anesthesia guidelines. RECOMMENDATIONS: Await biopsy results. Resume diet. No findings to explain the patient's left-sided pain.
[2023-04-02 10:20] VITALS: BP 119/52; PULSE 60; RESP 20
== END 2023-04-02 10:28 | disposition home or self-care (01) ==
LOC: ORWHC2ENDO 07:46
PROVIDERS: ATTEND Surgery
DX: Z12.11 Encounter for screening for malignant neoplasm of colon (principal); K29.50 Unspecified chronic gastritis without bleeding; K31.7 Polyp of stomach and duodenum; K57.30 Diverticulosis of large intestine without perforation or abscess without bleeding; I10 Essential (primary) hypertension; K21.9 Gastro-esophageal reflux disease without esophagitis; Z87.442 Personal history of urinary calculi; Z79.1 Long term (current) use of non-steroidal anti-inflammatories (NSAID); Z79.811 Long term (current) use of aromatase inhibitors; Z79.01 Long term (current) use of anticoagulants; Z98.890 Other specified postprocedural states; Z79.899 Other long term (current) drug therapy; Z90.49 Acquired absence of other specified parts of digestive tract; Z80.9 Family history of malignant neoplasm, unspecified; Z91.040 Latex allergy status; Z91.048 Other nonmedicinal substance allergy status; G43.909 Migraine, unspecified, not intractable, without status migrainosus
CPT/HCPCS: 88305; 43239; J2405; J2001; J2704; G0121; 45378

== ENCOUNTER → 2023-05-29 | Outpatient (CLI) | payer MEDICARE ==
--- NOTE | 2023-05-29 11:44 | MM ---
Reason for Exam: Screening (asymptomatic). Last screening mammogram was performed 12 month(s) ago. Patient History: Menarche at age 10. Postmenopausal. Maternal aunt had breast cancer, age 50. Maternal aunt had breast cancer, age 50. Risk Values: Barbara 5 year model risk: 1.0%. NCI Lifetime model risk: 5.5%. Prior Study Comparison: 10/24/2018 Bilateral Screening Mammogram, [facility]. 10/19/2020 Bilateral Screening Mammogram, [facility]. 05/28/2022 Bilateral MG 3D screening mammo w/cad, [facility]. Tissue Density: There are scattered fibroglandular densities. Findings: Analyzed By CAD. There is no suspicious group of microcalcifications or new suspicious mass. Overall Assessment: Negative, BI-RAD 1 Management: Screening Mammogram of both breasts in [address] [facility] will attempt to contact patient to return for supplemental views and ultrasound if indicated. Patient should continue monthly self-breast exams. A clinical breast exam by your physician is recommended on an annual basis. This exam should not preclude additional follow-up of suspicious palpable abnormalities. Note on Barbara scores and lifetime risk: 1. A Barbara score greater than 3% is considered moderate risk. If this is the case, consider specialist referral to assess eligibility for a risk reducing agent. 2. If overall lifetime risk for the development of breast cancer is 20% or higher, the patient may qualify for future screening with alternating mammogram and breast MRI. Electronically signed and approved by: Shon Grant DO
== END | disposition home or self-care (01) ==
LOC: RADMAMWWP 11:12
PROVIDERS: ATTEND Family Medicine
DX: Z12.31 Encounter for screening mammogram for malignant neoplasm of breast (principal); Z78.0 Asymptomatic menopausal state; Z80.3 Family history of malignant neoplasm of breast
CPT/HCPCS: 77063; 77067

== ENCOUNTER → 2024-09-14 | Outpatient (CLI) | payer MEDICARE ==
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
== END | disposition home or self-care (01) ==
LOC: RADUSWWP 08:31
PROVIDERS: ATTEND Psychiatry & Neurology Neurology
DX: K83.8 Other specified diseases of biliary tract (principal); G89.29 Other chronic pain
CPT/HCPCS: 76700

== ENCOUNTER → 2024-09-16 | Outpatient (CLI) | payer MEDICARE ==
[2024-09-16 15:14] VITALS: BP 131/69; PULSE 60; RESP 16; TEMP 98.1
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
== END ==
LOC: 3 N SLEEP 14:45
PROVIDERS: ATTEND Internal Medicine
DX: G43.909 Migraine, unspecified, not intractable, without status migrainosus (principal); G47.33 Obstructive sleep apnea (adult) (pediatric); I10 Essential (primary) hypertension; E78.5 Hyperlipidemia, unspecified; K21.9 Gastro-esophageal reflux disease without esophagitis; Z90.49 Acquired absence of other specified parts of digestive tract; Z91.040 Latex allergy status; Z91.048 Other nonmedicinal substance allergy status
CPT/HCPCS: 99211

== ENCOUNTER 2024-10-01 19:20 | Outpatient (CLI) | payer MEDICARE ==
--- NOTE | 2024-10-08 14:23 | P.PCN ---
Description of Procedure: POLYSOMNOGRAPHY REPORT PROCEDURE(S)/DATE(S): Polysomnography 10/01/2024 CLINICAL: Patient has been seen in the sleep center for evaluation of obstructive sleep apnea-hypopnea syndrome. Please see my consultation. Sleep study has been done for evaluation of patient breathing during the sleep. PROCEDURE: The standard montage for clinical polysomnography included the electroencephalogram, the electrooculogram, the mentalis surface electromyography and Lead II cardiography. The respiratory battery consisted of measurements of nasal/buccal air flow, pressure transducer measurements from nose, thoracic and/or abdominal effort and intercostal surface electromyography. Video monitoring has been done to check for any parasomnia events. Nocturnal oxyhemoglobin saturations were obtained by finger oximetry. Step-beltran titration with positive airway pressure was utilized to control the respiratory events, if necessary. RESULTS: During the diagnostic sleep study sleep efficiency was close to normal 85.5%. Latency to sleep onset was in acceptable range 26.0 min. Sleep architec ture showed stage NI was normal 5.1%, Delta sleep was absent 0%, REM sleep was short 8.6%. Respiratory channel showed 0 obstructive apneas, 0 mixed apneas, 0 central apneas, 6 hypopneas with lowest oxygen level 87%. Total apnea hypopnea index was 1.0. Heart rate was in the range between 48 and 55, average 50. EMG showed 0 periodic limb movements per hour. IMPRESSIONS: 1. No significant respiratory abnormalities have been documented during the sleep study. 2. No significant periodic limb movements have been documented. 3. Snoring have been documented during the sleep study. Please see other impressions from consultation PLAN: 1. Preferable position during the sleep on the side. 2. Losing weight. 3. Sleep hygiene with regular time in bed for at least 7-1/2 hours. 4. No driving if feeling sleepiness. Thank you very much for allowing me to participate in the management of your patient. Sincerely, Denys Peacock MD, PhD, FAASM. Diplomat of [place] [employer], Sleep Medicine Board by [place] [employer] [facility] [facility] [place] cc: Olayinka Munoz MD
== END 2024-10-02 06:07 | disposition home or self-care (01) ==
LOC: 3 N SLEEP 19:20
PROVIDERS: ATTEND Internal Medicine
DX: G47.33 Obstructive sleep apnea (adult) (pediatric) (principal); Z91.048 Other nonmedicinal substance allergy status; Z91.040 Latex allergy status
CPT/HCPCS: 95810

== ENCOUNTER → 2024-10-19 | Outpatient (CLI) | payer MEDICARE ==
--- NOTE | 2024-10-19 20:20 | BD ---
EXAMINATION TYPE: Axial Bone Density DATE OF EXAM: 10/19/2024 CLINICAL HISTORY: 59 years old Female. ICD-10 CODE: Z78.0 MENOPAUSAL STATE , Additional History: Height: 62 Weight: 171.2 FRAX RISK QUESTIONS: Alcohol (3 or more units per day): no Family History (Parent hip fracture): no Glucocorticoids (More than 3mos): no (Ex: prednisone, prednisolone, methylprednisolone, dexamethasone, and hydrocortisone). History of Fracture in Adulthood: ankle, c-spine, elbow Secondary Osteoporosis: 1. Type 1 Diabetes: no 2. Hyperthyroidism: no 3. Menopause before 45: no 4. Malnutrition: no 5. Chronic liver disease: no Rheumatoid Arthritis: no Current Tobacco Use: no RISK FACTORS HISTORY OF: Hip Fracture (Right/Left): no Spine Fracture: no History of Wrist Fracture: no Surgery to Spine/Hip(right/left)/Wrist (right/left): no MEDICATIONS: Thyroid Medications: no Osteoporosis Medications: no EXAM MEASUREMENTS: Bone mineral densitometry was performed using the [employer] System. Bone mineral density as measured about the Lumbar spine is: ----- L1-L4(G/cm2): 1.135 T Score Values are as follows: ----- L1: -0.7 ----- L2: -0.7 ----- L3: -0.2 ----- L4: -0.2 ----- L1-L4: -0.4 Z Score Values are as follows: ----- L1: 0.2 ----- L2: 0.2 ----- L3: 0.6 ----- L4: 0.7 ----- L1-L4: 0.5 Bone mineral density has: -0.7 % since study of: 10/19/2020 Bone mineral density about the R hip (g/cm2): 0.805 Bone mineral density about the L hip (g/cm2): 0.909 T Score values are as follows: -----R Neck: -2.2 -----L Neck: -1.5 -----R Total: -1.6 -----L Total: -0.8 Z Score values are as follows: -----R Neck: -1.2 -----L Neck: -0.5 -----R Total: -0.9 -----L Total: -0.1 Bone mineral density has: decreased -10.6 % since study of: 10/19/2020 FRAX%s: The graph provided illustrates a 17.0% chance for a major osteoporotic fx and a 2.6% chance f or the hips probability for fx in 10 years time. IMPRESSION: Osteopenia (T Score between -2.5 and -1). There is slightly increased risk of fracture and the patient may be considered for treatment. Re-Screen 2-5 years. NOTE: T-SCORE=SD OF THE YOUNG ADULT MEAN. [facility], , 10/19/2024 8:18 PM
== END | disposition home or self-care (01) ==
LOC: RADBDWWP 10:48
PROVIDERS: ATTEND Family Medicine
DX: M85.89 Other specified disorders of bone density and structure, multiple sites (principal); Z78.0 Asymptomatic menopausal state
CPT/HCPCS: 77080

== ENCOUNTER → 2024-10-20 | Outpatient (CLI) | payer MEDICARE ==
--- NOTE | 2024-10-20 12:00 | MM ---
Reason for Exam: Screening (asymptomatic). Last mammogram was performed 1 year(s) and 5 month(s) ago. Patient History: Menarche at age 10. Patient has no children. Postmenopausal. Maternal aunt had breast cancer, age 50. Maternal aunt had breast cancer, age 50. Maternal aunt had breast cancer, age 55. Risk Values: Barbara 5 year model risk: 1.6%. NCI Lifetime model risk: 7.9%. Prior Study Comparison: 10/19/2020 Bilateral Screening Mammogram, [facility]. 05/28/2022 Bilateral MG 3D screening mammo w/cad, [facility]. 05/29/2023 Bilateral MG 3D screening mammo w/cad, [facility]. Tissue Density: There are scattered areas of fibroglandular density. Findings: Analyzed By CAD. Right breast: There is no suspicious group of microcalcifications or new suspicious mass. Left breast: There is no suspicious group of microcalcifications or new suspicious mass. Overall Assessment: Negative, BI-RAD 1 Management: Screening Mammogram of both breasts in [address] [facility] will attempt to contact patient to return for supplemental views and ultrasound if indicated. Patient should continue monthly self-breast exams. A clinical breast exam by your physician is recommended on an annual basis. This exam should not preclude additional follow-up of suspicious palpable abnormalities. Note on Barbara scores and lifetime risk: 1. A Barbara score greater than 3% is considered moderate risk. If this is the case, consider specialist referral to assess eligibility for a risk reducing agent. 2. If overall lifetime risk for the development of breast cancer is 20% or higher, the patient may qualify for future screening with alternating mammogram and breast MRI. [facility], , 10/20/2024 11:58 AM. Electronically signed and approved by: Shon Grant DO
== END | disposition home or self-care (01) ==
LOC: RADMAMWWP 11:01
PROVIDERS: ATTEND Family Medicine
DX: Z12.31 Encounter for screening mammogram for malignant neoplasm of breast (principal); R92.323 Mammographic fibroglandular density, bilateral breasts; Z78.0 Asymptomatic menopausal state; Z80.3 Family history of malignant neoplasm of breast
CPT/HCPCS: 77063; 77067

== ENCOUNTER → 2024-12-29 | Outpatient (CLI) | payer MEDICARE ==
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
== END | disposition home or self-care (01) ==
LOC: RADXRMAIN 14:23
PROVIDERS: ATTEND Family Medicine
DX: S92.515A Nondisplaced fracture of proximal phalanx of left lesser toe(s), initial encounter for closed fracture (principal); X58.XXXA Exposure to other specified factors, initial encounter